=== PATIENT | female | born 1970 | race Caucasian/White ===

== ENCOUNTER 2018-09-02 10:17 | Emergency (ER) | payer MEDICARE, BC ==
[2018-09-02 11:01] VITALS: RESP 18
[2018-09-02] MEDS ORDERED: KETOROLAC 30 MG/ML 1 ML VIAL IVP STA (11:11)
[2018-09-02] MEDS ORDERED: SODIUM CHLORIDE 0.9% 1,000 ML IV STA ×2 (11:11→12:44)
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
[2018-09-02] MEDS ORDERED: ONDANSETRON 4 MG/2 ML VIAL IVP STA (11:34)
[2018-09-02 11:59] LABS: Basophils # (A) 0.1 k/uL (0-0.2); Basophils % (A) 1 %; Eosinophils # (A) 0.2 k/uL (0-0.7); Eosinophils % (A) 2 %; HCT 42.4 % (34.0-46.0); HGB 13.7 gm/dL (11.4-16.0); Lymphocytes # (A) 1.5 k/uL (1.0-4.8); Lymphocytes % (A) 17 %; MCH 28.8 pg (25.0-35.0); MCHC 32.2 g/dL (31.0-37.0); MCV 89.5 fL (80.0-100.0); Mean Platelet Volume 6.9; Monocytes # (A) 0.4 k/uL (0-1.0); Monocytes % (A) 4 %; Neutrophils # (A) 6.6 k/uL (1.3-7.7); Neutrophils % (A) 76 %; Platelet Count 277 k/uL (150-450); RBC 4.73 m/uL (3.80-5.40); RDW 13.8 % (11.5-15.5); WBC 8.8 k/uL (3.8-10.6)
[2018-09-02 12:07] LABS: ALT 33 U/L (9-52); AST 30 U/L (14-36); Albumin 4.5 g/dL (3.5-5.0); Alkaline Phosphatase 89 U/L (38-126); Amorphous Sediment,Urine Rare /hpf; Amylase 92 U/L (30-110); Anion Gap 12 mmol/L; Appearance,Urine Cloudy (Clear); Bacteria,Urine Occasional /hpf; Bilirubin,Urine Negative (Negative); Blood Urea Nitrogen 16 mg/dL (7-17); Blood,Urine Moderate (Negative); Calcium 9.8 mg/dL (8.4-10.2); Calcium Oxalate Crystals,Urine Occasional /hpf; Carbon Dioxide 25 mmol/L (22-30); Chloride 103 mmol/L (98-107); Color,Urine Yellow; Glucose 138 mg/dL (74-99); Glucose,Urine (UA) Negative (Negative); Hyaline Casts,Urine 1 /lpf (0-2); Ketones,Urine Negative (Negative); Leukocyte Esterase,Urine Moderate (Negative); Lipase 146 U/L (23-300); Mucus,Urine Rare /hpf; Nitrite,Urine Negative (Negative); Protein,Urine 2+ (Negative); RBC,Urine >182 /hpf (0-5); Sodium 140 mmol/L (137-145); Specific Gravity,Urine 1.015 (1.001-1.035); Squamous Epithelial Cell,Urine 5 /hpf (0-4); Total Bilirubin 0.5 mg/dL (0.2-1.3); Total Protein 7.5 g/dL (6.3-8.2); Urobilinogen,Urine <2.0 mg/dL (<2.0); WBC,Urine 48 /hpf (0-5)
--- NOTE | 2018-09-02 13:15 | XR ---
EXAMINATION TYPE: XR KUB DATE OF EXAM: 09/02/2018 COMPARISON: None HISTORY: Abdomen pain, left flank pain TECHNIQUE: Single view upright abdomen FINDINGS: Large calcifications overlying the right renal region estimated 3.7 x 2.9 cm in size.r smal l 1.9 and 0.8 cm calcifications may be present. Fecal debris is within the colon. Psoas margins are normal. Organomegaly is not present. No free air is evident. No suspicious differential air-fluid levels are present. IMPRESSION: 1. Large calcifications which appear to be on the right kidney side. No left renal stones are identi fied.
--- NOTE | 2018-09-02 14:03 | CT ---
EXAMINATION TYPE: CT abdomen pelvis w con DATE OF EXAM: 09/02/2018 COMPARISON: 08/15/2012 INDICATION: Back pain DLP: 1135 mGycm, Automated exposure control for dose reduction was used. CONTRAST: 100 mL of Isovue 300. Study performed without Oral Contrast TECHNIQUE: Axial images were obtained from above the diaphragm to the pubic rami in the axial plane a t 5 mm thick sections. Reconstructed images are reviewed on the computer in the coronal plane. FINDINGS: Limited CT sections are obtained the lung bases. The lung bases are clear. CT ABDOMEN: Liver: Normal Spleen: Normal Pancreas: Normal Adrenal glands: The adrenal glands are normal. Gallbladder: Gallstones are present. Kidneys: No masses are evident. There is moderate bilateral hydronephrosis. Left perinephric strandin g is evident. There is a nonobstructing renal stone at the inferior pole left kidney measuring 0.6 cm . Proximal left hydroureter is present. This extends to a 0.5 cm calcification causing obstruction. S eries 201 image 51. There is a large staghorn calculus within the right renal pelvis measuring approx imately 1.6 x 2.5 cm in size. There is some proximal right hydroureter which tapers to the pelvic inl et. No obstructing renal stone is identified. No cysts are present. Aorta: Vascular calcification is within the aorta. Inferior vena cava: Normal. CT PELVIS: Loops of bowel within the abdomen and pelvis are normal. There are loops of bowel which are incom pletely distended or lack oral contrast limiting their evaluation. Appendix: Normal as visualized. Urinary bladder: Normal. Genitourinary structures: Uterus is normal. Adnexal regions are clear. Osseous structures: No suspicious lytic or sclerotic lesions. Old pelvic fractures are evident. Right sacroiliac joint arthrodesis appears to be present. Facet degenerative changes are within the lumbar spine. Degenerative disc changes are present L5-S1. IMPRESSIONS: 1. 0.5 cm obstructing mid left ureteral stone with moderate left hydronephrosis. 2. Large staghorn calculus right renal pelvis with moderate right hydronephrosis. Some proximal right hydroureter is evident without obvious etiology.
[2018-09-02 15:37] VITALS: BP 128/75; PULSE 80; TEMP 98.2
== END 2018-09-02 15:39 | disposition home or self-care (01) ==
LOC: EC 10:17
DX: N13.6 Pyonephrosis (principal); E11.9 Type 2 diabetes mellitus without complications; I10 Essential (primary) hypertension; E78.5 Hyperlipidemia, unspecified; F41.9 Anxiety disorder, unspecified; F32.9 Major depressive disorder, single episode, unspecified; Z79.84 Long term (current) use of oral hypoglycemic drugs; Z79.899 Other long term (current) drug therapy; Z88.2 Allergy status to sulfonamides; Z88.1 Allergy status to other antibiotic agents; Z88.5 Allergy status to narcotic agent; Z87.891 Personal history of nicotine dependence
CPT/HCPCS: 36415; 80053; 82150; 83605; 83690; 85025; 81001; 81025; 87040; 74018; 74177; 99284; 96365; 96375 ×2; 96361 ×3; J2405; J0696; J1885; Q9967

== ENCOUNTER → 2018-10-10 | Outpatient (CLI) | payer MEDICARE, BC ==
[2018-10-10 14:40] LABS: Basophils # (A) 0.1 k/uL (0-0.2); Basophils % (A) 1 %; Eosinophils # (A) 0.2 k/uL (0-0.7); Eosinophils % (A) 3 %; HCT 43.9 % (34.0-46.0); HGB 13.9 gm/dL (11.4-16.0); Lymphocytes # (A) 1.6 k/uL (1.0-4.8); Lymphocytes % (A) 26 %; MCH 29.2 pg (25.0-35.0); MCHC 31.8 g/dL (31.0-37.0); MCV 91.9 fL (80.0-100.0); Mean Platelet Volume 7.2; Monocytes # (A) 0.2 k/uL (0-1.0); Monocytes % (A) 4 %; Neutrophils # (A) 3.9 k/uL (1.3-7.7); Neutrophils % (A) 65 %; Platelet Count 260 k/uL (150-450); RBC 4.78 m/uL (3.80-5.40); RDW 13.5 % (11.5-15.5)
[2018-10-10 14:51] LABS: ALT 38 U/L (9-52); AST 32 U/L (14-36); Albumin 4.6 g/dL (3.5-5.0); Alkaline Phosphatase 80 U/L (38-126); Anion Gap 8 mmol/L; Blood Urea Nitrogen 13 mg/dL (7-17); Calcium 10.1 mg/dL (8.4-10.2); Carbon Dioxide 31 mmol/L (22-30); Chloride 99 mmol/L (98-107); Glucose 117 mg/dL (74-99); Potassium 4.6 mmol/L (3.5-5.1); Sodium 138 mmol/L (137-145); Total Bilirubin 0.6 mg/dL (0.2-1.3); Total Protein 7.4 g/dL (6.3-8.2)
[2018-10-10 15:17] LABS: Amorphous Sediment,Urine Rare /hpf; Appearance,Urine Clear (Clear); Bacteria,Urine Rare /hpf; Bilirubin,Urine Negative (Negative); Blood,Urine Small (Negative); Calcium Oxalate Crystals,Urine Rare /hpf; Color,Urine Light Yellow; Glucose,Urine (UA) Negative (Negative); Hyaline Casts,Urine 3 /lpf (0-2); Ketones,Urine Negative (Negative); Leukocyte Esterase,Urine Trace (Negative); Mucus,Urine Rare /hpf; Nitrite,Urine Negative (Negative); Protein,Urine Trace (Negative); RBC,Urine 2 /hpf (0-5); Specific Gravity,Urine 1.004 (1.001-1.035); Urobilinogen,Urine <2.0 mg/dL (<2.0); WBC,Urine 4 /hpf (0-5)
== END | disposition home or self-care (01) ==
LOC: LABPAT 12:50
PROVIDERS: ATTEND Urology
DX: Z01.818 Encounter for other preprocedural examination (principal); N20.0 Calculus of kidney; Z01.812 Encounter for preprocedural laboratory examination; R31.29 Other microscopic hematuria
CPT/HCPCS: 36415; 80053; 81001; 85025; 87086; 93005

== ENCOUNTER 2018-10-17 07:34 | Inpatient (IN) | payer MEDICARE, BC ==
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
[~2018-10-17 07:34] MED LIST: DEXAMETHASONE SOD PHOSPHATE 10 MG/ML 1 ML VIAL IV ONE; LACTATED RINGERS 1,000 ML IV SCH; LIDOCAINE 1% 20 ML VIAL (10MG/ML) FOR IV START INTRADERMA PRN; ONDANSETRON 4 MG/2 ML VIAL IVP ONE; SCOPOLAMINE 1.5MG/72HR PATCH TRANSDERM ONE; ceFAZolin 1,000 MG in DEXTROSE/WATER 1 50ML.BAG IVPB ONE; fentaNYL (PF) 50 MCG/ML 2 ML AMP IV PRN
--- NOTE | 2018-10-17 07:57 | XR ---
EXAMINATION TYPE: XR KUB DATE OF EXAM: 10/17/2018 CLINICAL DATA: 48-year-old female preop for surgery, right kidney stone, [facility] COMPARISON: 09/02/2018 FINDINGS: Nonobstructive bowel gas pattern. There is moderate scattered stool. Pelvic phleboliths with suture a nchors a sutures. Suspect old healed fracture deformities at the right SI joint and bilateral pubic r ami. Partially visualized antegrade intramedullary nail within the left femur. Redemonstrated large 3.1 cm an adjacent 1.8 cm calcification in the right mid abdomen. IMPRESSION: Redemonstrated right-sided nephrolithiasis with large 3.1 and 1.8 cm calculi.
[2018-10-17 09:19] LABS: Glucose,Whole Blood 122 mg/dL (75-99)
[2018-10-17] MEDS ORDERED: MIDAZOLAM 2 MG/2 ML VIAL ONE (09:37)
[2018-10-17] MEDS ORDERED: ROCURONIUM BROMIDE 10 MG/ML 10 ML VIAL IV ONE (09:37)
[2018-10-17] MEDS ORDERED: fentaNYL (PF) 50 MCG/ML 2 ML AMP ONE (09:37)
[2018-10-17] MEDS ORDERED: GLYCOPYRROLATE 0.2 MG/ML 2 ML VIAL ONE (09:37)
[2018-10-17] MEDS ORDERED: LIDOCAINE 1% INJ 10MG/ML (20 ML MDV) ONE (09:37)
[2018-10-17] MEDS ORDERED: PROPOFOL 10 MG/ML 20 ML VIAL IV ONE (09:37)
[2018-10-17] MEDS ORDERED: NEOSTIGMINE 1 MG/ML 10 ML VIAL ONE (09:37)
[2018-10-17] MEDS ORDERED: IOPAMIDOL-370 50ML BTL MISCELLANE ONE (10:15)
[2018-10-17] MEDS ORDERED: LACTATED RINGERS 1,000 ML IV ONE (10:35)
[2018-10-17] MEDS ORDERED: ALPRAZolam 0.25 MG TAB PO PRN (11:27)
[2018-10-17] MEDS ORDERED: HYDROcodone/APAP 7.5-325MG 1 EACH TAB PO PRN (11:27)
[2018-10-17] MEDS ORDERED: ONDANSETRON 4 MG/2 ML VIAL IVP PRN (11:28)
[2018-10-17] MEDS ORDERED: ACETAMINOPHEN TAB 325 MG TAB PO PRN (11:28)
[2018-10-17] MEDS ORDERED: MAG HYDROX/AL HYDROX/SIMETH 30 ML CUP PO PRN (11:28)
[2018-10-17] MEDS ORDERED: HYDROMORPHONE (PF) 10 MG in SODIUM CHLORIDE 0.9% 49 ML IV PRN (11:30)
[2018-10-17] MEDS ORDERED: NALOXONE 0.4 MG/ML 1 ML VIAL IV PRN (11:30)
--- NOTE | 2018-10-17 11:37 | P.OP ---
Date of Procedure: 10/17/18 Preoperative Diagnosis: Right renal calculus, partial staghorn, large Postoperative Diagnosis: Same Procedure(s) Performed: Cystoscopy placement of 5-[place]izen [place] occluding balloon catheter right, percutaneous nephrostomy (Dr. espino), percutaneous nephrostolithotomy with ultrasound, large, placement of 10-[place] J nephrostomy tube. Anesthesia: GRUPO Surgeon: Edmond Peguero Estimated Blood Loss (ml): 100 Pathology: other (Stone) Condition: stable Disposition: PACU Indications for Procedure: The patient is 48. She has an obstructing partial staghorn calculus on the left causing pain it is large greater than 3 cm. She comes for percutaneous nephrostolithotomy Description of Procedure: The patient is brought to the operating suite. She is given a successful general endotracheal anesthesia on the transport gurney. She's placed in a frog position with a sterile prep and in drape. Cystoscopy with Foroblique lens and 22-[place]izen [place] sheath identifies a normal urethra. The right ureteral orifice is identified and easily intubated with a 5-[place] occluding balloon catheter which is passed up to the renal pelvis. It is secured to a 16-[place]izen [place] Summers. The patient is placed in a prone position with care to airways and extremities. Dr. Espino of radiology performed percutaneous access to the right upper pole calyx. I then dilate the tract to 30-[place]. I introduced the 30-[place] sheath into the collecting system. With the rigid offset nephroscope I intubate the collecting system. I remove clot and identify the large renal pelvic stone. With ultrasound I fracture the stone and suction or grasp the larger fragments out. I then advanced into the anterior and posterior lower pole calyces and remove the stones in them. I moved down and the UPJ and remove any stone fragments. I then pass the flexible cystoscope throughout the collecting system and see no remaining stone. I removed the nephroscope. I then pass over the working wire a 10-[place] J nephrostomy tube the coils in the renal pelvis. The working sheath is removed the. The nephrostomy tube was secured to the skin. The patient is awakened and returned recovery in good condition. Blood loss is approximately 100 mL. She'll be kept in the hospital overnight.
[2018-10-17] MEDS: KETOROLAC 30 MG/ML 1 ML VIAL IVP PRN ×2 (11:42→20:30)
[2018-10-17] MEDS: HYDROmorphone 1 MG/ML 1 ML SYRINGE IVP ONE ×2 (11:43→11:50)
--- NOTE | 2018-10-17 11:58 | FL ---
EXAMINATION TYPE: FL Perc Nephrostomy New Access DATE OF EXAM: 10/17/2018 COMPARISON: NONE HISTORY: Right renal calculus Procedure had been discussed with the patient by Dr. Peguero, risks, benefits, alternatives, were dis cussed and any questions were answered. Informed consent was obtained. The patient was in a semipro ne position prepped and draped on the OR table in the usual sterile fashion. Utilizing a 15 cm lengt h [place] needle a single pass was made into a lower pole posterior calyx under fluoroscopic guidance. An 0.018 guidewire is passed through the needle and there was placement of a 6-[place] catheter sheat h system. There was conversion to a 0.035 system was performed with passage of a guidewire into the ureter utilizing a directional catheter. A second safety wire was placed. Remaining portion of pro cedure performed by . Approximately 11 minutes and 4 seconds of fluoroscopy was provided. IMPRESSION: 1. Successful intraoperative right nephrostomy prior to nephrolithotomy.
[2018-10-17] MEDS ORDERED: GABAPENTIN 1200 MG PO SCH (13:00)
[2018-10-17 13:13] VITALS: BMI 34.4
[2018-10-17] MEDS: GABAPENTIN 400 MG CAP PO SCH ×3 (14:28→20:29)
[2018-10-17] MEDS: SODIUM CHLORIDE 0.45% 1,000 ML IV SCH ×2 (14:29→16:55)
[2018-10-17 16:24] LABS: Glucose,Whole Blood 137 mg/dL (75-99)
[2018-10-17] MEDS: INSULIN ASPART (NovoLOG) 100 UNIT/ML VIAL SQ SCH ×2 (16:52→20:29)
[2018-10-17] MEDS: metFORMIN 500 MG TAB PO SCH (16:52)
[2018-10-17] MEDS ORDERED: CALCIUM CARBONATE 500 MG CHEWABLE PO PRN (17:15)
--- NOTE | 2018-10-17 18:08 | XR ---
EXAMINATION TYPE: XR clavicle RT DATE OF EXAM: 10/17/2018 COMPARISON: NONE HISTORY: Right clavicle pain TECHNIQUE: 2 views FINDINGS: I see no fracture nor dislocation. Shoulder joint appears intact. There are no pathologic c alcifications. IMPRESSION: Negative right clavicle exam.
[2018-10-17 19:58] LABS: Glucose,Whole Blood 160 mg/dL (75-99)
[2018-10-17] MEDS ORDERED: LISINOPRIL 5 MG TAB PO SCH (21:00)
[2018-10-17] MEDS ORDERED: ATORVASTATIN 10 MG TAB PO SCH (21:00)
[2018-10-18] MEDS: KETOROLAC 30 MG/ML 1 ML VIAL IVP PRN (02:37)
[2018-10-18] MEDS: SODIUM CHLORIDE 0.45% 1,000 ML IV SCH ×2 (05:13→05:56)
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
[2018-10-18 06:58] LABS: Glucose,Whole Blood 99 mg/dL (75-99)
[2018-10-18] MEDS ORDERED: GABAPENTIN 300 MG CAP PO SCH (09:00)
[2018-10-18 09:19] VITALS: BP 108/56; PULSE 83; RESP 14; TEMP 98.8
[2018-10-18] MEDS: metFORMIN 500 MG TAB PO SCH (09:49)
[2018-10-18] MEDS: INSULIN ASPART (NovoLOG) 100 UNIT/ML VIAL SQ SCH ×2 (09:54→12:01)
[2018-10-18 11:55] LABS: Glucose,Whole Blood 101 mg/dL (75-99)
[2018-10-18] MEDS: GABAPENTIN 400 MG CAP PO SCH (12:20)
[2018-10-18 18:58] LABS: Hemoglobin A1C 7.2 % (4.0-6.0)
== END 2018-10-18 13:00 | disposition home or self-care (01) | DRG 661 ==
LOC: 2ORMAIN 07:34 → 4SSUR 12:34
PROVIDERS: ADMIT Urology; ATTEND Urology
PROC: 0T933ZZ Drainage of Right Kidney Pelvis, Percutaneous Approach (ICD-10-PCS; 2018-10-17)
PROC: 0TC33ZZ Extirpation of Matter from Right Kidney Pelvis, Percutaneous Approach (ICD-10-PCS; principal; 2018-10-17 09:15)
DX: N20.0 Calculus of kidney (principal); E11.9 Type 2 diabetes mellitus without complications; E78.5 Hyperlipidemia, unspecified; I10 Essential (primary) hypertension; R32 Unspecified urinary incontinence; K59.09 Other constipation; I83.90 Asymptomatic varicose veins of unspecified lower extremity; M79.604 Pain in right leg; F41.9 Anxiety disorder, unspecified; F32.9 Major depressive disorder, single episode, unspecified; M19.90 Unspecified osteoarthritis, unspecified site; G43.909 Migraine, unspecified, not intractable, without status migrainosus; Z79.899 Other long term (current) drug therapy; Z79.84 Long term (current) use of oral hypoglycemic drugs; Z79.891 Long term (current) use of opiate analgesic; Z87.81 Personal history of (healed) traumatic fracture; Z87.442 Personal history of urinary calculi; Z87.891 Personal history of nicotine dependence; Z88.5 Allergy status to narcotic agent; Z88.2 Allergy status to sulfonamides; Z80.1 Family history of malignant neoplasm of trachea, bronchus and lung
CPT/HCPCS: 50432; 74018; 81025; 82365; 83036; 86850; 86900; 86901; 94760; 94762

== ENCOUNTER 2018-10-28 16:22 | Emergency (ER) | payer MEDICARE, BC ==
[2018-10-28 16:32] VITALS: RESP 20
[2018-10-28] MEDS ORDERED: SODIUM CHLORIDE 0.9% 500 ML 500 ML IV STA (17:00)
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
[2018-10-28 18:03] LABS: Basophils # (A) 0.1 k/uL (0-0.2); Basophils % (A) 1 %; Eosinophils # (A) 0.3 k/uL (0-0.7); Eosinophils % (A) 4 %; HCT 38.4 % (34.0-46.0); HGB 12.9 gm/dL (11.4-16.0); Lymphocytes # (A) 1.7 k/uL (1.0-4.8); Lymphocytes % (A) 23 %; MCH 28.3 pg (25.0-35.0); MCHC 33.6 g/dL (31.0-37.0); Mean Platelet Volume 9.5; Monocytes # (A) 0.3 k/uL (0-1.0); Monocytes % (A) 4 %; Neutrophils # (A) 5.2 k/uL (1.3-7.7); Neutrophils % (A) 68 %; Platelet Count 351 k/uL (150-450); RBC 4.55 m/uL (3.80-5.40); RDW 15.8 % (11.5-15.5); WBC 7.6 k/uL (3.8-10.6)
[2018-10-28 18:04] LABS: MCV 84.3 fL (80.0-100.0)
[2018-10-28 18:09] LABS: INR 0.9 (<1.2); Partial Thromboplastin Time 24.3 sec (22.0-30.0); Prothrombin Time 9.6 sec (9.0-12.0)
[2018-10-28 18:19] LABS: ALT 31 U/L (9-52); AST 25 U/L (14-36); Alkaline Phosphatase 103 U/L (38-126); Anion Gap 11 mmol/L; Blood Urea Nitrogen 18 mg/dL (7-17); Calcium 10.2 mg/dL (8.4-10.2); Carbon Dioxide 27 mmol/L (22-30); Chloride 102 mmol/L (98-107); Glucose 109 mg/dL (74-99); Magnesium 1.7 mg/dL (1.6-2.3); Potassium 4.7 mmol/L (3.5-5.1); Sodium 140 mmol/L (137-145); Total Bilirubin 0.4 mg/dL (0.2-1.3); Total Protein 6.9 g/dL (6.3-8.2)
--- NOTE | 2018-10-28 18:58 | XR ---
EXAMINATION TYPE: XR chest 2V DATE OF EXAM: 10/28/2018 COMPARISON: Prior chest x-ray 10/21/[address] same date HISTORY: Difficulty breathing, right-sided chest pain TECHNIQUE: Frontal and lateral views of the chest are obtained. FINDINGS: Right hemidiaphragm remains elevated. Minimal tenting of the right hemidiaphragm shows a s imilar appearance. No pneumothorax or pleural effusion. Heart size is stable. Linear density at the l eft lung base may reflect atelectasis or scar. Heart size is normal. IMPRESSION: There may be minimal linear atelectasis or scarring.
--- NOTE | 2018-10-28 19:13 | CT ---
EXAMINATION TYPE: CT angio chest DATE OF EXAM: 10/28/2018 COMPARISON: Chest x-ray same date, prior chest CT 10/21/[address] abdomen pelvis 09/02/2017 HISTORY: Right sided chest pain. History of recent right sided nephrostomy tube. CT DLP: 992 mGycm Automated exposure control for dose reduction was used. CONTRAST: CTA scan of the thorax is performed without and with IV Contrast, patient injected with 100ml mL of I sovue 370, pulmonary embolism protocol. MIP images are created and reviewed. 3D reconstructed image s are created on an independent workstation and reviewed. FINDINGS: LUNGS: The lungs are grossly clear, there is no concerning parenchymal mass or nodule identified. Li near foci scattered within the lungs likely reflect scarring as on prior. There is no pleural effusio n or pneumothorax seen. The tracheobronchial tree is patent. AORTA: No additional significant abnormality is seen. MEDIASTINUM: There is satisfactory enhancement of the pulmonary artery and its branches, there is no CT evidence for pulmonary embolism. There are no greater than 1 cm hilar or mediastinal lymph nodes. No pericardial effusion is seen. There are coronary artery calcifications. OTHER: There is right-sided hydronephrosis present, hydroureter as well as periureteral soft tissue stranding similar to prior CT abdomen pelvis. Bilateral nonobstructive calculi are present within the kidneys. Cystic focus present towards the upper pole the right kidney. There are dependent stones wi thin the gallbladder. IMPRESSION: NO EVIDENT PULMONARY EMBOLISM. CHOLELITHIASIS. CORRELATE FOR POSSIBLE URINARY TRACT INFECTION, FINDIN GS COULD BE DUE TO PRIOR INSTRUMENTATION. BILATERAL NEPHROLITHIASIS.
[2018-10-28 20:10] VITALS: BP 147/81; PULSE 86; TEMP 98.2
== END 2018-10-28 20:12 | disposition home or self-care (01) ==
LOC: EC 16:22
DX: N13.30 Unspecified hydronephrosis (principal); R07.89 Other chest pain; K80.20 Calculus of gallbladder without cholecystitis without obstruction; E11.9 Type 2 diabetes mellitus without complications; E78.5 Hyperlipidemia, unspecified; I10 Essential (primary) hypertension; M19.90 Unspecified osteoarthritis, unspecified site; F32.9 Major depressive disorder, single episode, unspecified; F41.9 Anxiety disorder, unspecified; Z87.891 Personal history of nicotine dependence; Z79.84 Long term (current) use of oral hypoglycemic drugs; Z79.891 Long term (current) use of opiate analgesic; Z79.1 Long term (current) use of non-steroidal anti-inflammatories (NSAID); Z79.899 Other long term (current) drug therapy; Z88.1 Allergy status to other antibiotic agents; Z88.2 Allergy status to sulfonamides; Z88.5 Allergy status to narcotic agent; Z98.890 Other specified postprocedural states; Z93.6 Other artificial openings of urinary tract status
CPT/HCPCS: 36415; 93005; 80053; 83605; 83735; 84484; 85025; 85610; 85730; 87040; 71046; 71275; 99285; 96360; 96361; Q9967

== ENCOUNTER → 2019-04-30 | Outpatient (CLI) | payer MEDICARE, BC ==
--- NOTE | 2019-04-30 09:04 | US ---
EXAMINATION TYPE: US abdomen limited DATE OF EXAM: 04/30/2019 COMPARISON: NONE CLINICAL HISTORY: K80.20 Calculus of gallbladder without...... RUQ pain x 2 weeks, history of gallsto lance, history of right kidney surgery to remove stones in Aug 2018 EXAM MEASUREMENTS: Liver Length: 14.0 cm Gallbladder Wall: 0.2 cm CBD: 0.6 cm Right Kidney: 10.8 x 6.2 x 5.8 cm Pancreas: obscured by overlying midline bowel gas Liver: There is increased echogenicity of the hepatic parenchyma with diminished visualization of th e portal triads most commonly relating to hepatic steatosis and limiting evaluation for underlying he patic masses. Gallbladder: multiple echogenic foci, non mobile when patient rolled LLD, wall measures wnl Evidence for sonographic Iqbal's sign: no CBD: Within normal limits although upper limits of normal measuring 0.6cm Right Kidney: no hydronephrosis or nephrolithiasis seen IMPRESSION: 1. Multiple gallstones within the gallbladder neck. These are nonmobile and may be impacted into the gallbladder neck, however no other sonographic findings are seen to suggest acute cholecystitis at th is time. 2. Sonographic findings most commonly related to hepatic steatosis. Correlate with liver function joy ts. 3. Obscuration of the pancreas by overlying bowel gas.
== END | disposition home or self-care (01) ==
LOC: RADUSWWP 06:57
PROVIDERS: ATTEND Internal Medicine Gastroenterology
DX: K80.20 Calculus of gallbladder without cholecystitis without obstruction (principal)
CPT/HCPCS: 76705

== ENCOUNTER 2019-05-03 06:44 | Day surgery (SDC) | payer MEDICARE, BC ==
[~2019-05-03 06:44] MED LIST changes: -DEXAMETHASONE SOD PHOSPHATE 10 MG/ML 1 ML VIAL IV ONE; -ONDANSETRON 4 MG/2 ML VIAL IVP ONE; -SCOPOLAMINE 1.5MG/72HR PATCH TRANSDERM ONE; -ceFAZolin 1,000 MG in DEXTROSE/WATER 1 50ML.BAG IVPB ONE; -fentaNYL (PF) 50 MCG/ML 2 ML AMP IV PRN
[2019-05-03 07:19] VITALS: TEMP 97.6
[2019-05-03] MEDS ORDERED: LACTATED RINGERS 1,000 ML IV ONE ×2 (07:21)
[2019-05-03 07:25] LABS: Glucose,Whole Blood 156 mg/dL (75-99)
[2019-05-03] MEDS ORDERED: PROPOFOL 10 MG/ML 20 ML VIAL IV ONE (07:27)
--- NOTE | 2019-05-03 07:49 | P.PCN ---
Date of Procedure: 05/03/19 Procedure(s) Performed: BRIEF HISTORY: Patient is a 49-year-old pleasant female scheduled for an elective colonoscopy as a part of screening for colorectal neoplasia. PROCEDURE PERFORMED: Colonoscopy with snare polypectomy. PREOPERATIVE DIAGNOSIS: Screening for colon cancer. IV sedation per Anesthesia. PROCEDURE: After informed consent was obtained, the patient, was brought into the endoscopy unit. IV sedation was administered by Anesthesia under continuous monitoring. Digital rectal examination was normal. Initially the Olympus CF-160 flexible video colonoscope was then inserted in the rectum, gradually advanced into the cecum without any difficulty. Careful examination was performed as the scope was gradually being withdrawn. Ileocecal valve and the appendiceal orifice were visualized and appeared normal. Prep was excellent. Mucosa of the cecum, ascending colon, appeared normal. The transverse colon there was a 7-8 mm polyp that was removed by snare polypectomy. Rest of the transverse colon, descending colon, sigmoid colon, and rectum appeared normal. Retroflexion was performed in the rectum and no lesions were seen. The patient tolerated the procedure well. IMPRESSION: 7-8 mm proximal transverse colon polyp status post polypectomy RECOMMENDATIONS: Findings of this examination were discussed with the patient as well his family. She was advised to follow with the biopsy results. If the biopsy shows adenoma, she can have a repeat colonoscopy in 5 years.
[2019-05-03 08:02] VITALS: BP 133/82; PULSE 75; RESP 16
== END 2019-05-03 08:49 | disposition home or self-care (01) ==
LOC: ORWHC2ENDO 06:44
PROVIDERS: ATTEND Internal Medicine Gastroenterology
DX: Z12.11 Encounter for screening for malignant neoplasm of colon (principal); D12.3 Benign neoplasm of transverse colon; I10 Essential (primary) hypertension; G43.909 Migraine, unspecified, not intractable, without status migrainosus; E11.9 Type 2 diabetes mellitus without complications; F39 Unspecified mood [affective] disorder; Z79.84 Long term (current) use of oral hypoglycemic drugs; Z79.891 Long term (current) use of opiate analgesic; Z79.899 Other long term (current) drug therapy; Z88.2 Allergy status to sulfonamides; Z88.5 Allergy status to narcotic agent
CPT/HCPCS: 81025; 88305; 45385; J2704

== ENCOUNTER 2019-06-17 13:04 | Emergency (ER) | payer MEDICARE, BC ==
[2019-06-17 13:29] VITALS: BP 143/81; PULSE 93; RESP 20; TEMP 98.1
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
--- NOTE | 2019-06-17 15:07 | XR ---
EXAMINATION TYPE: XR foot complete RT DATE OF EXAM: 06/17/2019 COMPARISON: None HISTORY: Trauma first toe TECHNIQUE: Three-view right foot FINDINGS: There is an oblique fracture extending from the proximal portion proximal phalanx first dig it to the intra-articular surface. Minimal diastases is present. No additional fractures are evident. Plantar and Achilles tendon calcaneal heel spurs are present. IMPRESSION: 1. Fracture of the proximal portion medial aspect proximal phalanx first digit with intra-articular extension
== END 2019-06-17 15:08 | disposition home or self-care (01) ==
LOC: EC 13:04
DX: S92.401A Displaced unspecified fracture of right great toe, initial encounter for closed fracture (principal); E11.9 Type 2 diabetes mellitus without complications; E78.5 Hyperlipidemia, unspecified; I10 Essential (primary) hypertension; F41.9 Anxiety disorder, unspecified; F32.9 Major depressive disorder, single episode, unspecified; Z79.84 Long term (current) use of oral hypoglycemic drugs; Z79.899 Other long term (current) drug therapy; Z88.1 Allergy status to other antibiotic agents; Z88.2 Allergy status to sulfonamides; Z88.5 Allergy status to narcotic agent; Z87.891 Personal history of nicotine dependence; W01.0XXA Fall on same level from slipping, tripping and stumbling without subsequent striking against object, initial encounter
CPT/HCPCS: 99283

== ENCOUNTER → 2021-04-26 | Outpatient (CLI) | payer MEDICARE, BC ==
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
== END | disposition home or self-care (01) ==
LOC: RADUSWWP 12:44
PROVIDERS: ATTEND Family Medicine
DX: M79.661 Pain in right lower leg (principal); S70.11XA Contusion of right thigh, initial encounter

== ENCOUNTER → 2022-12-03 | Outpatient (CLI) | payer MEDICARE ==
--- NOTE | 2022-12-06 17:26 | MR ---
EXAMINATION TYPE: MR brain and iac wo/w con DATE OF EXAM: 12/03/2022 12:33 PM CLINICAL INDICATION:Female, 52 years old with history of H90.5 unspecified sensorineural hearing loss ; COMPARISON: None TECHNIQUE: Multi planar, multi sequence imaging was performed through the brain. Specialized thin s equences were obtained through the internal auditory canals. Pre-and post gadolinium sequences were obtained. MR contrast: IV Contrast: 10 cc Gadavist FINDINGS: The zhong-white junctions, ventricular system, and cisterns appear unremarkable. Scattered foci of hi gh T2 signal intensity are seen within the periventricular white matter. Midline structures show no a bnormality. Diffusion-weighted imaging shows no evidence of restricted diffusion. The susceptibility weighted images do not reveal any evidence for micro-hemorrhage. The bone marrow signal is within normal limits. Paranasal sinuses and mastoid air cells: Mild scattered paranasal sinus disease most pronounced in th e right maxillary sinus. Visualized orbits: Orbital contents are intact. After administration of gadolinium, no abnormal enhancement is seen. The internal auditory canal sequences demonstrate no significant irregularity. The 7th cranial nerve s, 8 cranial nerves, and cerebellar pontine angles appear unremarkable. After the administration wilfredo olinium, no abnormal enhancement is seen within the internal auditory canals. Vascular loop: Right Type II: entering, but not extending >50% of the length of the IAC IMPRESSION: 1. No evidence of intracranial mass nor acute/subacute CVA. 2. Right internal auditory canal vascular type II, no finding in the left the radiology. 3. No evidence of internal auditory canal abnormality. 4. Nonspecific white matter changes.
== END | disposition home or self-care (01) ==
LOC: RADMRIMAIN 11:28
PROVIDERS: ATTEND Otolaryngology
DX: H90.5 Unspecified sensorineural hearing loss (principal); R90.82 White matter disease, unspecified
CPT/HCPCS: 70553

== ENCOUNTER → 2023-02-04 | Outpatient (CLI) | payer MEDICARE ==
--- NOTE | 2023-02-04 11:17 | XR ---
EXAMINATION TYPE: XR elbow complete RT DATE OF EXAM: 02/04/2023 9:47 AM INDICATION: Patient age:Female; 53 years old; Reason for study: M25.521 PAIN IN RIGHT ELBOW; COMPARISON: None TECHNIQUE: The right elbow was examined in AP, lateral, and oblique projections. FINDINGS: No evidence of any acute osseous pathology, joint dislocation, or soft tissue swelling is n oted. No evidence of joint effusion is present. Minimal degeneration and osteophyte formation of the coracoid process and trochlea. IMPRESSION: 1. No evidence of acute fracture. 2. Minimal osteoarthritic changes.
== END | disposition home or self-care (01) ==
LOC: RADXRMAIN 09:21
PROVIDERS: ATTEND Family Medicine
DX: M19.021 Primary osteoarthritis, right elbow (principal)

== ENCOUNTER 2023-08-22 12:00 | Inpatient (IN) | payer MEDICARE ==
[2023-08-22] MEDS ORDERED: ACETAMINOPHEN IV (For NPO) 1,000 MG in EMPTY BAG 1 BAG IVPB STA (12:39)
[2023-08-22] MEDS ORDERED: SODIUM CHLORIDE 0.9% 1,000 ML IV STA ×3 (12:39→13:16)
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
[2023-08-22 13:10] LABS: Potassium 5.1 mmol/L (3.5-5.1)
[2023-08-22 13:11] LABS: ALT 74 U/L (4-34); AST 54 U/L (14-36); African American GFR (CKD) 32 (>60 ml/min/1.73 sqM); Albumin 4.2 g/dL (3.5-5.0); Alkaline Phosphatase 110 U/L (38-126); Anion Gap 17 mmol/L; Blood Urea Nitrogen 34 mg/dL (7-17); Calcium 9.2 mg/dL (8.4-10.2); Carbon Dioxide 21 mmol/L (22-30); Chloride 97 mmol/L (98-107); Glucose 278 mg/dL (74-99); Non-African American GFR(CKD) 28 (>60 ml/min/1.73 sqM); Sodium 135 mmol/L (137-145); Total Bilirubin 1.1 mg/dL (0.2-1.3)
[2023-08-22 13:12] LABS: INR 1.2 (<1.2); Partial Thromboplastin Time 26.5 sec (22.0-30.0); Prothrombin Time 12.4 sec (10.0-12.5)
--- NOTE | 2023-08-22 13:14 | XR ---
EXAMINATION TYPE: XR chest 2V DATE OF EXAM: 08/22/2023 COMPARISON: 10/28/2018 HISTORY: Shortness of breath TECHNIQUE: Frontal and lateral views of the chest are obtained. FINDINGS: Scattered senescent parenchymal changes noted. Hyperinflation compatible with COPD. No evidence for infiltrate. No evidence for atelectasis. Heart size is stable. Mediastinal structures are stable and grossly unremarkable. No evidence for hilar prominence. Degenerative changes dorsal spine. IMPRESSION: 1. No evidence for acute pulmonary disease.
[2023-08-22 13:48] LABS: Basophils # (A) 0.1 k/uL (0-0.2); Basophils % (A) 0 %; Eosinophils % (A) 0 %; HCT 46.9 % (34.0-46.0); HGB 15.6 gm/dL (11.4-16.0); Lymphocytes # (A) 0.8 k/uL (1.0-4.8); Lymphocytes % (A) 4 %; MCH 29.3 pg (25.0-35.0); MCHC 33.4 g/dL (31.0-37.0); MCV 87.9 fL (80.0-100.0); Mean Platelet Volume 9.4; Monocytes # (A) 0.8 k/uL (0-1.0); Monocytes % (A) 4 %; Neutrophils # (A) 18.2 k/uL (1.3-7.7); Neutrophils % (A) 91 %; Platelet Count 217 k/uL (150-450); RBC 5.33 m/uL (3.80-5.40); RDW 14.1 % (11.5-15.5); WBC 19.9 k/uL (3.8-10.6)
--- NOTE | 2023-08-22 14:14 | CT ---
EXAMINATION TYPE: CT lumbar spine wo con DATE OF EXAM: 08/22/2023 COMPARISON: 08/22/2023 CT abdomen pelvis HISTORY: Pain, right leg weakness x [address] DLP: 943 combined mGycm CONTRAST: None TECHNIQUE: CT of the lumbar spine is performed on a spiral scan at 3 mm thick sections. Reconstructed images are performed in the coronal and sagittal planes. FINDINGS: Vertebral body alignment is normal. There is loss of disc height L5-S1. Remaining disc heights are preserved. Vertebral body heights are preserved. Alignment is normal. No focal disc herniation or significant disc bulge is evident. No spi nal canal stenosis or neural foraminal stenosis is evident. Facet hypertrophy is present L5-S1. Please see CT abdomen and pelvis for discussion regarding obstructing left ureteral stone. IMPRESSION: 1. No acute lumbar spine abnormality. There is loss of disc height at L5-S1. 2. Obstructing proximal left ureteral stone
--- NOTE | 2023-08-22 14:21 | CT ---
EXAMINATION TYPE: CT abdomen pelvis wo con DATE OF EXAM: 08/22/2023 COMPARISON: None INDICATION: Pain, right leg weakness x 2 days. DLP: 943 combined mGycm, Automated exposure control for dose reduction was used. CONTRAST: 0 mL of Isovue 300. Study performed without Oral Contrast TECHNIQUE: Axial images were obtained from above the diaphragm to the pubic rami in the axial plane a t 5 mm thick sections. Reconstructed images are reviewed on the computer in the coronal plane. FINDINGS: Limited CT sections are obtained the lung bases. The lung bases are clear. Coronary artery calcific ation is present. CT ABDOMEN: There appears to be some ascites adjacent to the spleen and left lobe liver. Liver: Normal Spleen: Normal Pancreas: Normal Adrenal glands: The adrenal glands are normal. Gallbladder: Cholelithiasis is present. Kidneys: Left perinephric stranding is present. There is marked left hydronephrosis. There is an obst ructing 0.8 cm proximal left ureteral stone. There is a 0.8 cm nonobstructing calcification at the in ferior pole left kidney. An additional punctate calcification without obstruction is at the posterior lateral left mid kidney. No cysts are present. Aorta: Vascular calcification is within the aorta. Inferior vena cava: Normal. CT PELVIS: Loops of bowel within the abdomen and pelvis are normal. Fecal bolus at the level of the rectum. T he study is without oral contrast limiting bowel evaluation. Appendix: Normal as visualized. Urinary bladder: Decompressed with very limited evaluation. Genitourinary structures: Uterus appears normal. Adnexa are normal. Osseous structures: Old pelvic fractures are evident. Left hip prosthesis is present. Facet hypertrop hy is present. IMPRESSION: 1. Obstructing 0.8 cm proximal left ureteral stone with marked left hydronephrosis. 2. Nonobstructing left renal stones also present. 3. Perinephric stranding. A 4 Some ascites appears to be adjacent to the spleen and left lobe liver.
--- NOTE | 2023-08-22 14:24 | CT ---
EXAMINATION TYPE: CT hip RT wo con DATE OF EXAM: 08/22/2023 COMPARISON: CT abdomen and pelvis and a HISTORY: Pain, right leg weakness x [address] DLP: 943 combined mGycm Automated exposure control for dose reduction was used. Contrast: None Technique: Axial images 2 mm thick sections. Reconstructed images in coronal and sagittal plane. FINDINGS: Femoral head articulates with the acetabulum. Joint space is somewhat narrowed. No acute right hip fr acture is evident. There are old fractures of the lateral fascial ramus and of the pubic ramus IMPRESSION: 1. NO ACUTE OSSEOUS ABNORMALITY RIGHT HIP. 2. OLD PELVIC FRACTURES.
[2023-08-22 16:36] LABS: Appearance,Urine Turbid (Clear); Bacteria,Urine Occasional /hpf; Bilirubin,Urine 1+ (Negative); Blood,Urine Moderate (Negative); Color,Urine Brown; Glucose,Urine (UA) Negative (Negative); Ketones,Urine Negative (Negative); Leukocyte Esterase,Urine Large (Negative); Nitrite,Urine Positive (Negative); PH, Urine 5.5 (5.0-8.0); Protein,Urine 2+ (Negative); RBC,Urine 75 /hpf (0-5); Specific Gravity,Urine 1.024 (1.001-1.035); Squamous Epithelial Cell,Urine 4 /hpf (0-4); Urobilinogen,Urine <2.0 mg/dL (<2.0); WBC,Urine >182 /hpf (0-5)
[2023-08-22] MEDS: SODIUM CHLORIDE 0.9% 1,000 ML IV SCH (16:52)
[2023-08-22] MEDS ORDERED: NALOXONE 0.4 MG/ML 1 ML VIAL IV PRN (17:06)
[2023-08-22] MEDS ORDERED: HYDROmorphone 0.5 MG/0.5 ML SYRINGE IVP PRN (17:06)
[2023-08-22] MEDS ORDERED: HYDROmorphone 1 MG/ML 1 ML SYRINGE IVP PRN (17:06)
[2023-08-22 17:42] LABS: Glucose,Whole Blood 185 mg/dL (70-110)
[2023-08-22] MEDS ORDERED: LIDOCAINE 1% INJ 10MG/ML (20 ML MDV) ONE (17:42)
[2023-08-22] MEDS ORDERED: fentaNYL (PF) 50 MCG/ML 2 ML AMP ONE (17:42)
[2023-08-22] MEDS ORDERED: PHENYLEPHRINE 10 MG/ML VIAL ONE (17:42)
[2023-08-22] MEDS ORDERED: MIDAZOLAM 2 MG/2 ML VIAL ONE (17:42)
[2023-08-22] MEDS ORDERED: ONDANSETRON 4 MG/2 ML VIAL ONE (17:42)
[2023-08-22] MEDS ORDERED: SUCCINYLCHOLINE CHLORIDE 200 MG/10 ML VIAL IV ONE (17:42)
[2023-08-22] MEDS ORDERED: DEXAMETHASONE SOD PHOSPHATE 10 MG/ML 1 ML VIAL ONE (17:42)
[2023-08-22] MEDS ORDERED: PROPOFOL 10 MG/ML 20 ML VIAL IV ONE (17:42)
[2023-08-22] MEDS ORDERED: IV FLUID CONTINUATION 950 ML IV ONE (18:04)
--- NOTE | 2023-08-22 18:17 | P.OP ---
Date of Procedure: 08/22/23 Preoperative Diagnosis: Left ureteral obstruction, urinary tract infection with sepsis, left pyelonephrosis Postoperative Diagnosis: Same Procedure(s) Performed: Cystoscopy, placement of double-J catheter left to 6 x 24 Anesthesia: GRUPO Surgeon: Edmond Peguero Estimated Blood Loss (ml): 0 Pathology: none sent Condition: stable Disposition: PACU Indications for Procedure: The patient is 53. She has a known history of stones. She presents to the ER with fever and elevated white count and elevated lactic acid and a 1 cm mid ureteral stone on the left with obstruction. Her urine is infected. She comes for emergent stent placement Description of Procedure: Patient brought to the operating suite. Given general anesthetic. Placed lithotomy position with a sterile prep and drape. Cystoscopy identifies murky and very inflamed urine. The bladder is irrigated several times to clean the debris out of the bladder. The left ureteral orifice is identified and intubated with an 035 wire passed up into the kidney. Over the wires and passed a 6 x 24 double-J catheter that coils in the renal pelvis the bladder the bladder strain the patient is awake and returned recovery in good condition. She'll be observed in the hospital and placed on antibiotics. Later date we will do stone and stent removal.
[2023-08-22] MEDS ORDERED: DEXTROSE 50% SYRINGE 50 ML IVP PRN ×2 (18:58)
--- NOTE | 2023-08-22 18:58 | FL ---
EXAMINATION TYPE: FL guidance operating room DATE OF EXAM: 08/22/2023 Comparison: None Clinical History: 53-year-old female STENT PLACEMENT. Findings: FL TIME 16.1 SECONDS. DAP 0.26932 Gycm2. [address] ABARCA. Impression: Fluoroscopy for urology procedure as above.
[2023-08-22 19:03] LABS: Glucose,Whole Blood 155 mg/dL (70-110)
[2023-08-22] MEDS ORDERED: IV FLUID CONTINUATION 1,000 ML IV ONE (19:17)
[2023-08-22] MEDS ORDERED: METOPROLOL TARTRATE 5 MG/5 ML VIAL IVP ONE ×2 (19:22→19:34)
[2023-08-22 20:23] LABS: Glucose,Whole Blood 163 mg/dL (70-110)
[2023-08-22] MEDS: INSULIN ASPART (NovoLOG) 100 UNIT/ML VIAL SQ SCH (21:15)
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
[2023-08-22] MEDS: GABAPENTIN 400 MG CAP PO SCH (22:27)
[2023-08-23] MEDS: HEPARIN SODIUM,PORCINE 5,000 UNIT/ML 1 ML VIAL SQ SCH ×4 (00:01→23:05)
[2023-08-23] MEDS: INSULIN ASPART (NovoLOG) 100 UNIT/ML VIAL SQ SCH ×5 (00:02→20:57)
[2023-08-23 06:24] LABS: Glucose,Whole Blood 196 mg/dL (70-110)
[2023-08-23] MEDS: SODIUM CHLORIDE 0.9% 1,000 ML IV SCH ×4 (06:42→17:58)
--- NOTE | 2023-08-23 07:54 | XR ---
EXAMINATION TYPE: XR Hip RT and AP Pelvis DATE OF EXAM: 08/23/2023 CLINICAL HISTORY: pain TECHNIQUE: AP and frogleg views of the right hip are obtained. Single view pelvis also submitted. COMPARISON: None. FINDINGS: There is no acute fracture/dislocation evident. Healed fractures are noted of the superio r and inferior pubic rami bilaterally. The joint space appears within normal limits. The overlying soft tissue appears unremarkable. IMPRESSION: 1. There is no acute fracture or dislocation. ICD 10 NO FRACTURE, INITIAL EVALUATION
[2023-08-23] MEDS: PANTOPRAZOLE 40 MG/10 ML VIAL IV SCH (09:43)
[2023-08-23] MEDS: GABAPENTIN 300 MG CAP PO SCH (09:51)
[2023-08-23 10:03] LABS: Basophils % (A) 0 %; Eosinophils % (A) 0 %; HCT 39.1 % (34.0-46.0); Hypochromasia Moderate; Lymphocytes # (A) 0.3 k/uL (1.0-4.8); Lymphocytes % (A) 2 %; MCH 29.3 pg (25.0-35.0); MCHC 31.7 g/dL (31.0-37.0); MCV 92.4 fL (80.0-100.0); Mean Platelet Volume 8.4; Monocytes # (A) 0.3 k/uL (0-1.0); Monocytes % (A) 3 %; Neutrophils # (A) 10.7 k/uL (1.3-7.7); Neutrophils % (A) 94 %; Platelet Count 132 k/uL (150-450); RBC 4.23 m/uL (3.80-5.40); WBC 11.4 k/uL (3.8-10.6)
[2023-08-23 10:05] LABS: HGB 12.4 gm/dL (11.4-16.0)
[2023-08-23 10:12] LABS: ALT 34 U/L (4-34); AST 34 U/L (14-36); African American GFR (CKD) 81 (>60 ml/min/1.73 sqM); Albumin 2.9 g/dL (3.5-5.0); Albumin/Globulin Ratio 1.1; Alkaline Phosphatase 85 U/L (38-126); Anion Gap 9 mmol/L; Blood Urea Nitrogen 26 mg/dL (7-17); Carbon Dioxide 18 mmol/L (22-30); Chloride 110 mmol/L (98-107); Globulin 2.6 g/dL; Glucose 308 mg/dL (74-99); Non-African American GFR(CKD) 71 (>60 ml/min/1.73 sqM); Potassium 4.3 mmol/L (3.5-5.1); Sodium 137 mmol/L (137-145); Total Bilirubin 0.4 mg/dL (0.2-1.3); Total Protein 5.5 g/dL (6.3-8.2)
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
[2023-08-23 11:54] LABS: Glucose,Whole Blood 233 mg/dL (70-110)
[2023-08-23] MEDS: GABAPENTIN 400 MG CAP PO SCH ×2 (12:57→20:15)
[2023-08-23 17:59] LABS: Glucose,Whole Blood 147 mg/dL (70-110)
[2023-08-23 20:21] LABS: Glucose,Whole Blood 163 mg/dL (70-110)
--- NOTE | 2023-08-24 05:44 | P.PN ---
Subjective This is a pleasant 53 years old female with past medical history of multiple medical problems including diabetes mellitus, hypertension, hyperlipidemia, osteoarthritis, chronic constipation and kidney stone. Presents because of left flank pain radiating to the back of one-day duration. Like dull increasingly severity gradually and patient also felt she has UTI. She feels she has less urine output Patient also has been complaining of from right hip area pain about/10 for 2 days duration increased by movement. With pain medication. There are now down to 4/10. She denies chest pain or dyspnea or coughing. No diarrhea or vomiting. No headache dizziness weakness She denies smoking alcohol or illicit drugs She was hypotensive on admission but currently blood pressure improved with systolic 120s/80s. She is afebrile on admission, she has leukocytosis of 19.9 Liver enzymes mildly elevated. Creatinine went up 1.99 indicating acute kidney injury Troponin is negative Urine culture, blood culture requested CT of the abdomen and pelvis showing obstruction of the left ureter by 0.8 proximal left ureteral stone with fat stranding around that area with marked hydronephrosis on the left side. Hip CT no acute osseous abnormality showing old pelvic fracture Lumbar CAT scan showing no acute abnormality. Patient took him emergently to his urological procedure where double-J catheter placed and obstruction relieved. Currently she is covered with ceftriaxone and normal saline 08/23/2023 Patient is awake and alert Not in distress. No significant UTIs signs and symptoms, no flank pain. She has diarrhea today, we will send the test for C. diff is low. Over the suspicion is low. Patient's with no abdominal pain she ate little bit Her right hip pain is better today 1-2/10. She raises her 10 to go to the bathroom and walking with no difficulties. She still spiking some fever and reports history Still mildly tachycardic Leukocytosis significantly improved plan to 11.4 and creatinine back peripheral syringe 0.9 Patient has positive urine culture for gram-negative bacilli positive blood culture for gram-negative bacilli Patient was on Rocephin 2 g daily Infectious disease consult added Amaryl 4 mg and metformin 1000 mg on hold and can be resumed if her sugar is going up and patient is eating more Review of systems CONSTITUTIONAL: No fever, no malaise, no fatigue. HEENT: No recent visual problems or hearing problems. Denied any sore throat. CARDIOVASCULAR: No orthopnea, PND, no palpitations, no syncope. PULMONARY: No shortness of breath, no cough, no hemoptysis. NEUROLOGICAL: No headaches, no weakness, no numbness. HEMATOLOGICAL: Denies any bleeding or petechiae. Active Medications Generic Name Dose Route Start Last Admin Trade Name Freq PRN Reason Stop Dose Admin Acetaminophen 650 mg 08/22/23 17:06 Acetaminophen Tab 325 Mg Tab PO Q6HR PRN Mild Pain or Fever > 100.5 Dextrose/Water 25 ml 08/22/23 18:58 Dextrose 50% Syringe 50 Ml IVP PER PROTOCOL PRN Hypoglycemia Protocol Dextrose/Water 50 ml 08/22/23 18:58 Dextrose 50% Syringe 50 Ml IVP PER PROTOCOL PRN Hypoglycemia Protocol Gabapentin 1,200 mg 08/22/23 22:12 08/23/23 20:15 Gabapentin 400 Mg Cap PO 1,200 mg BID@1300,2200 RAMONE Administration Gabapentin 900 mg 08/23/23 09:00 08/23/23 09:51 Gabapentin 300 Mg Cap PO 900 mg QAM RAMONE Administration Heparin Sodium (Porcine) 5,000 unit 08/23/23 00:00 08/23/23 23:05 Heparin Sodium,Porcine 5,000 Unit/Ml 1 Ml Vial SQ 5,000 unit Q8HR RAMONE Administration Hydromorphone HCl 0.5 mg 08/22/23 17:06 08/23/23 16:19 Hydromorphone 0.5 Mg/0.5 Ml Syringe IVP 0.5 mg Q3HR PRN Administration Moderate Pain (Scale 4 to 6) Hydromorphone HCl 1 mg 08/22/23 17:06 Hydromorphone 1 Mg/Ml 1 Ml Syringe IVP Q3HR PRN Severe Pain (Scale 7 to 10) Sodium Chloride 1,000 mls @ 130 mls/hr 08/22/23 12:45 08/23/23 17:58 Saline 0.9% IV 130 mls/hr .Q7H42M RAMONE Administration Ceftriaxone Sodium 2 gm/ 50 mls @ 100 mls/hr 08/23/23 09:15 08/23/23 09:43 Sodium Chloride IVPB 100 mls/hr Q24HR RAMONE Administration Protocol Insulin Aspart 0 unit 08/23/23 21:00 08/23/23 20:57 Insulin Aspart (Novolog) 100 Unit/Ml Vial SQ 2 unit ACHS RAMONE Administration Protocol Naloxone HCl 0.2 mg 08/22/23 17:06 Naloxone 0.4 Mg/Ml 1 Ml Vial IV Q2M PRN Opioid Reversal Pantoprazole Sodium 40 mg 08/23/23 09:00 08/23/23 09:43 Pantoprazole 40 Mg/10 Ml Vial IV 40 mg DAILY RAMONE Administration Objective - Vital Signs Vital signs: Vital Signs Temp 98.1 F 08/23/23 14:02 Pulse 108 H 08/23/23 14:02 Resp 16 08/23/23 14:02 BP 141/82 08/23/23 14:02 Pulse Ox 98 08/23/23 14:02 FiO2 Intake & Output 08/22/23 08/23/23 08/23/23 18:59 06:59 18:59 Intake Total 950 300 168 Output Total 0 Balance 950 300 168 Weight 90.718 kg 90.718 kg Intake: IV 950 300 Intake, IV Titration 50 Amount cefTRIAXone 2 gm In 50 Sodium Chloride 0.9% 50 ml @ 100 mls/hr IVPB Q24HR [facility] Rx#:[id number] Oral 118 Output: Estimated Blood Loss 0 Other: Voiding Method Toilet # Voids 2 # Bowel Movements 2 - Exam GENERAL: The patient is alert and oriented x3, not in any acute distress. Well developed, well nourished. HEENT: Pupils are round and equally reacting to light. EOMI. No scleral icterus. No conjunctival pallor. Normocephalic, atraumatic. No pharyngeal erythema. No thyromegaly. CARDIOVASCULAR: S1 and S2 present. No murmurs, rubs, or gallops. PULMONARY: Chest is clear to auscultation, no wheezing , no crackles. ABDOMEN: Soft, nontender, nondistended, normoactive bowel sounds. No palpable organomegaly. MUSCULOSKELETAL: No joint swelling or deformity. EXTREMITIES: No cyanosis, clubbing, or pedal edema. NEUROLOGICAL: Gross neurological examination did not reveal any focal deficits. SKIN: No rashes. no petechiae. - Labs CBC & Chem 7: 08/23/23 09:11 08/23/23 09:11 Labs: Abnormal Lab Results - Last 24 Hours (Table) 08/22/23 08/22/23 08/22/23 Range/Units 12:37 12:40 17:41 WBC (3.8-10.6) k/uL Plt Count (150-450) k/uL Neutrophils # (1.3-7.7) k/uL Lymphocytes # (1.0-4.8) k/uL Chloride (98-107) mmol/L Carbon Dioxide (22-30) mmol/L BUN (7-17) mg/dL Glucose (74-99) mg/dL POC Glucose (mg/dL) 185 H (70-110) mg/dL Calcium (8.4-10.2) mg/dL C-Reactive Protein 38.5 H (<1.0) mg/dL Total Protein (6.3-8.2) g/dL Albumin (3.5-5.0) g/dL Urine Appearance Turbid H (Clear) Urine Protein 2+ H (Negative) Urine Blood Moderate H (Negative) Urine Nitrite Positive H (Negative) Urine Bilirubin 1+ H (Negative) Ur Leukocyte Esterase Large H (Negative) Urine RBC 75 H (0-5) /hpf Urine WBC >182 H (0-5) /hpf Urine WBC Clumps Many H (None) /hpf Urine Bacteria Occasional H (None) /hpf 08/22/23 08/22/23 08/23/23 Range/Units 19:00 20:22 06:18 WBC (3.8-10.6) k/uL Plt Count (150-450) k/uL Neutrophils # (1.3-7.7) k/uL Lymphocytes # (1.0-4.8) k/uL Chloride (98-107) mmol/L Carbon Dioxide (22-30) mmol/L BUN (7-17) mg/dL Glucose (74-99) mg/dL POC Glucose (mg/dL) 155 H 163 H 196 H (70-110) mg/dL Calcium (8.4-10.2) mg/dL C-Reactive Protein (<1.0) mg/dL Total Protein (6.3-8.2) g/dL Albumin (3.5-5.0) g/dL Urine Appearance (Clear) Urine Protein (Negative) Urine Blood (Negative) Urine Nitrite (Negative) Urine Bilirubin (Negative) Ur Leukocyte Esterase (Negative) Urine RBC (0-5) /hpf Urine WBC (0-5) /hpf Urine WBC Clumps (None) /hpf Urine Bacteria (None) /hpf 08/23/23 08/23/2308/23/24 Range/Units 09:11 09:11 11:52 WBC 11.4 H (3.8-10.6) k/uL Plt Count 132 L (150-450) k/uL Neutrophils # 10.7 H (1.3-7.7) k/uL Lymphocytes # 0.3 L (1.0-4.8) k/uL Chloride 110 H (98-107) mmol/L Carbon Dioxide 18 L (22-30) mmol/L BUN 26 H (7-17) mg/dL Glucose 308 H (74-99) mg/dL POC Glucose (mg/dL) 233 H (70-110) mg/dL Calcium 8.0 L (8.4-10.2) mg/dL C-Reactive Protein (<1.0) mg/dL Total Protein 5.5 L (6.3-8.2) g/dL Albumin 2.9 L (3.5-5.0) g/dL Urine Appearance (Clear) Urine Protein (Negative) Urine Blood (Negative) Urine Nitrite (Negative) Urine Bilirubin (Negative) Ur Leukocyte Esterase (Negative) Urine RBC (0-5) /hpf Urine WBC (0-5) /hpf Urine WBC Clumps (None) /hpf Urine Bacteria (None) /hpf Microbiology - Last 24 Hours (Table) 08/22/23 12:40 Blood Culture Gram Stain - Preliminary Blood Assessment and Plan Assessment: Left ureteral stone with obstruction and marked left hydronephrosis status post cystoscopy and double-J catheter placement on 08/22 Acute urinary tract infection and left pyelonephritis. Urine culture is growing gram-negative bacilli Gram-negative septicemia Sepsis with leukocytosis and tachypnea and tachycardia Acute kidney injury. There is full Diabetes mellitus Hypertension Hyperlipidemia Obesity with BMI of 34.3 Plan: continue with ceftriaxone continue with normal saline aggressive hydration Follow-up culture results from the blood and urine Monitor kidney function Urology consult Test for C. diff Consult infectious disease for bacteremia Labs and medication were reviewed.. Continue same treatment. Continue with symptomatic treatment. Resume home medication. Monitor labs and vitals. DVT and GI prophylaxis. Further recommendations as per clinical course of the patient DVT prophylaxis: Subcutaneous heparin GI Prophylaxis: Pepcid Prognosis is guarded
[2023-08-24 06:23] LABS: Glucose,Whole Blood 126 mg/dL (70-110)
[2023-08-24] MEDS: INSULIN ASPART (NovoLOG) 100 UNIT/ML VIAL SQ SCH ×4 (06:26→21:47)
[2023-08-24] MEDS: ACETAMINOPHEN TAB 325 MG TAB PO PRN ×2 (07:59→17:37)
[2023-08-24] MEDS: PANTOPRAZOLE 40 MG/10 ML VIAL IV SCH (07:59)
[2023-08-24] MEDS: GABAPENTIN 300 MG CAP PO SCH (08:00)
[2023-08-24] MEDS: HEPARIN SODIUM,PORCINE 5,000 UNIT/ML 1 ML VIAL SQ SCH ×3 (08:00→23:03)
[2023-08-24] MEDS: SODIUM CHLORIDE 0.9% 1,000 ML IV SCH ×3 (09:41→19:50)
[2023-08-24 12:24] LABS: Glucose,Whole Blood 190 mg/dL (70-110)
[2023-08-24] MEDS: GABAPENTIN 400 MG CAP PO SCH ×2 (13:10→20:54)
[2023-08-24 17:24] LABS: Glucose,Whole Blood 179 mg/dL (70-110)
[2023-08-24 21:07] LABS: Glucose,Whole Blood 217 mg/dL (70-110)
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
[2023-08-25] MEDS: ACETAMINOPHEN TAB 325 MG TAB PO PRN ×3 (00:12→20:23)
[2023-08-25] MEDS: SODIUM CHLORIDE 0.9% 1,000 ML IV SCH ×4 (02:44→20:24)
[2023-08-25 06:23] LABS: Glucose,Whole Blood 139 mg/dL (70-110)
[2023-08-25] MEDS: INSULIN ASPART (NovoLOG) 100 UNIT/ML VIAL SQ SCH ×4 (06:24→20:48)
--- NOTE | 2023-08-25 07:36 | P.PN ---
Subjective This is a pleasant 53 years old female with past medical history of multiple medical problems including diabetes mellitus, hypertension, hyperlipidemia, osteoarthritis, chronic constipation and kidney stone. Presents because of left flank pain radiating to the back of one-day duration. Like dull increasingly severity gradually and patient also felt she has UTI. She feels she has less urine output Patient also has been complaining of from right hip area pain about/10 for 2 days duration increased by movement. With pain medication. There are now down to 4/10. She denies chest pain or dyspnea or coughing. No diarrhea or vomiting. No headache dizziness weakness She denies smoking alcohol or illicit drugs She was hypotensive on admission but currently blood pressure improved with systolic 120s/80s. She is afebrile on admission, she has leukocytosis of 19.9 Liver enzymes mildly elevated. Creatinine went up 1.99 indicating acute kidney injury Troponin is negative Urine culture, blood culture requested CT of the abdomen and pelvis showing obstruction of the left ureter by 0.8 proximal left ureteral stone with fat stranding around that area with marked hydronephrosis on the left side. Hip CT no acute osseous abnormality showing old pelvic fracture Lumbar CAT scan showing no acute abnormality. Patient took him emergently to his urological procedure where double-J catheter placed and obstruction relieved. Currently she is covered with ceftriaxone and normal saline 08/23/2023 Patient is awake and alert Not in distress. No significant UTIs signs and symptoms, no flank pain. She has diarrhea today, we will send the test for C. diff is low. Over the suspicion is low. Patient's with no abdominal pain she ate little bit Her right hip pain is better today 1-2/10. She raises her 10 to go to the bathroom and walking with no difficulties. She still spiking some fever and reports history Still mildly tachycardic Leukocytosis significantly improved plan to 11.4 and creatinine back peripheral syringe 0.9 Patient has positive urine culture for gram-negative bacilli positive blood culture for gram-negative bacilli Patient was on Rocephin 2 g daily Infectious disease consult added Amaryl 4 mg and metformin 1000 mg on hold and can be resumed if her sugar is going up and patient is eating more 08/24/2023 Patient was feeling generally weak today Low appetite she was shivering and feels cold. She has a fever of 102. Leukocytosis improving Culture are positive for gram-negative bacilli pending final results She remains on ceftriaxone 2 g daily with close monitoring. Normal saline at 100 mL/h Hemoglobin A1c 7.1% it currently sugar control and long-term management can be determined later on when patient improves. Currently amaryl and Metformin is on hold She has some loose stool so we will check for C. diff although the suspicion for C. diff colitis is low Objective - Vital Signs Vital signs: Vital Signs Temp 98.2 F 08/24/23 13:37 Pulse 111 H 08/24/23 13:37 Resp 18 08/24/23 13:37 BP 127/75 08/24/23 13:37 Pulse Ox 96 08/24/23 13:37 FiO2 Intake & Output 08/23/23 08/24/23 08/24/23 18:59 06:59 18:59 Intake Total 286 0 Balance 286 0 Intake: Intake, IV Titration 50 Amount cefTRIAXone 2 gm In 50 Sodium Chloride 0.9% 50 ml @ 100 mls/hr IVPB Q24HR [facility] Rx#:[id number] Oral 236 0 Other: Voiding Method Toilet Toilet # Voids 1 - Exam GENERAL: The patient is alert and oriented x3, not in any acute distress. Well developed, well nourished. HEENT: Pupils are round and equally reacting to light. EOMI. No scleral icterus. No conjunctival pallor. Normocephalic, atraumatic. No pharyngeal erythema. No thyromegaly. CARDIOVASCULAR: S1 and S2 present. No murmurs, rubs, or gallops. PULMONARY: Chest is clear to auscultation, no wheezing , no crackles. ABDOMEN: Soft, nontender, nondistended, normoactive bowel sounds. No palpable organomegaly. MUSCULOSKELETAL: No joint swelling or deformity. EXTREMITIES: No cyanosis, clubbing, or pedal edema. NEUROLOGICAL: Gross neurological examination did not reveal any focal deficits. SKIN: No rashes. no petechiae. - Labs CBC & Chem 7: 08/23/23 09:11 08/23/23 09:11 Labs: Abnormal Lab Results - Last 24 Hours (Table) 08/23/23 08/23/23 08/23/23 Range/Units 10:00 17:57 20:19 POC Glucose (mg/dL) 147 H 163 H (70-110) mg/dL Hemoglobin A1c 7.1 H (<=6.0) % 08/24/23 08/24/23 Range/Units 06:21 12:21 POC Glucose (mg/dL) 126 H 190 H (70-110) mg/dL Hemoglobin A1c (<=6.0) % Microbiology - Last 24 Hours (Table) 08/22/23 12:40 Blood Culture Gram Stain - Preliminary Blood Blood Culture - Preliminary Gram Neg Bacilli 08/22/23 12:40 Blood Culture Gram Stain - Preliminary Blood Blood Culture - Preliminary Gram Neg Bacilli 08/22/23 12:40 Urine Culture - Preliminary Urine,Voided Gram Neg Bacilli Assessment and Plan Assessment: Left ureteral stone with obstruction and marked left hydronephrosis status post cystoscopy and double-J catheter placement on 08/22 Acute urinary tract infection and left pyelonephritis. Urine culture is growing gram-negative bacilli Gram-negative septicemia Sepsis with leukocytosis and tachypnea and tachycardia Acute kidney injury. There is full Diabetes mellitus Hypertension Hyperlipidemia Obesity with BMI of 34.3 Plan: continue with ceftriaxone continue with normal saline Follow-up culture results from the blood and urine Monitor kidney function Urology consult Test for C. diff Consult infectious disease for bacteremia Labs and medication were reviewed.. Continue same treatment. Continue with symptomatic treatment. Resume home medication. Monitor labs and vitals. DVT and GI prophylaxis. Further recommendations as per clinical course of the patient DVT prophylaxis: Subcutaneous heparin GI Prophylaxis: Pepcid Prognosis is guarded
[2023-08-25] MEDS: PANTOPRAZOLE 40 MG/10 ML VIAL IV SCH (08:18)
[2023-08-25] MEDS: HEPARIN SODIUM,PORCINE 5,000 UNIT/ML 1 ML VIAL SQ SCH ×2 (08:18→16:04)
[2023-08-25] MEDS: GABAPENTIN 300 MG CAP PO SCH (08:19)
--- NOTE | 2023-08-25 08:47 | P.PN ---
Subjective Progress Note Date: 08/25/23 The patient is in the hospital with a urinary tract infection with sepsis, pyonephrosis on the left side due to an obstructing ureteral stone. She had an emergent stent placement. She is growing Citrobacter in the urine as well as the blood. She is still having fevers with the temperature is slowly coming down. Her white blood cell count has come down from 19,000-11,000. Objective - Vital Signs Vital signs: Vital Signs Temp 98.0 F 08/25/23 02:03 Pulse 94 08/25/23 02:03 Resp 16 08/25/23 02:03 BP 127/73 08/25/23 02:03 Pulse Ox 96 08/25/23 02:03 FiO2 Intake & Output 08/24/23 08/25/23 08/25/23 18:59 06:59 18:59 Intake Total 1480 Balance 1480 Intake: Intake, IV Titration 1480 Amount Sodium Chloride 0.9% 1, 1430 000 ml @ 130 mls/hr IV . Q7H42M [facility] Rx#:[id number] cefTRIAXone 2 gm In 50 Sodium Chloride 0.9% 50 ml @ 100 mls/hr IVPB Q24HR [facility] Rx#:[id number] Oral 0 Other: Voiding Method Toilet Toilet # Voids 2 - Labs CBC & Chem 7: 08/23/23 09:11 08/23/23 09:11 Labs: Abnormal Lab Results - Last 24 Hours (Table) 08/24/23 08/24/23 08/24/23 Range/Units 12:21 17:16 21:06 POC Glucose (mg/dL) 190 H 179 H 217 H (70-110) mg/dL 08/25/23 Range/Units 06:21 POC Glucose (mg/dL) 139 H (70-110) mg/dL Microbiology - Last 24 Hours (Table) 08/22/23 12:40 Urine Culture - Final Urine,Voided Citrobacter farmeri 08/22/23 12:40 Blood Culture Gram Stain - Preliminary Blood Blood Culture - Preliminary Gram Neg Bacilli 08/22/23 12:40 Blood Culture Gram Stain - Preliminary Blood Blood Culture - Preliminary Gram Neg Bacilli Assessment and Plan Assessment: Impression: Urinary tract infection with sepsis, left pyelonephrosis due to obstructing ureteral calculus treated with double-J catheter left. Recommendations: From urologic standpoint nothing further needs to be done until her sepsis has cleared up. I anticipate 2-3 weeks before I would do a stone manipulations and stent removal. This has been discussed with the patient.
[2023-08-25 12:14] LABS: Glucose,Whole Blood 176 mg/dL (70-110)
[2023-08-25] MEDS: GABAPENTIN 400 MG CAP PO SCH ×2 (12:55→20:23)
--- NOTE | 2023-08-25 12:59 | P.PN ---
Subjective Progress Note Date: 08/25/23 Principal diagnosis: Reason for follow-up is complicated UTI and bacteremia Patient is a 53-year-old female with a past medical history significant for diabetes mellitus hypertension hyperlipidemia osteoarthritis and did have a history of kidney stone patient presenting to the ER for evaluation of not feeling well and apparently the patient did have a fever at home, patient was noted to be septic secondary to left-sided pyelonephritis with septic stone status post cystoscopy with double-J catheter placement blood cultures positive for E. coli. On today's evaluation that is 08/25/2023, the patient did spike a fever of 102.9 F last night and did have a low-grade fever 100.2 this morning, patient is currently breathing comfortably on room air not requiring any oxygen, the patient denies having any chest pain shortness of breath or cough, the patient denies nausea vomiting no abdominal pain no diarrhea. No new labs has been obtained today blood cultures E. coli sensitive to ceftriaxone urine is growing Citrobacter Objective - Vital Signs Vital signs: Vital Signs Temp 100.2 F H 08/25/23 08:00 Pulse 98 08/25/23 08:00 Resp 14 08/25/23 08:00 BP 155/78 08/25/23 08:00 Pulse Ox 97 08/25/23 08:47 FiO2 Intake & Output 08/24/23 08/25/23 08/25/23 18:59 06:59 18:59 Intake Total 1480 Balance 1480 Intake: Intake, IV Titration 1480 Amount Sodium Chloride 0.9% 1, 1430 000 ml @ 130 mls/hr IV . Q7H42M [facility] Rx#:[id number] cefTRIAXone 2 gm In 50 Sodium Chloride 0.9% 50 ml @ 100 mls/hr IVPB Q24HR [facility] Rx#:[id number] Oral 0 Other: Voiding Method Toilet Toilet # Voids 2 - Exam GENERAL DESCRIPTION: Middle-age female lying in bed in no distress RESPIRATORY SYSTEM: Unlabored breathing , decreased breath sounds at bases HEART: S1 S2 regular rate and rhythm , ABDOMEN: Soft , no tenderness EXTREMITIES: No edema feet - Labs CBC & Chem 7: 08/23/23 09:11 08/23/23 09:11 Labs: Abnormal Lab Results - Last 24 Hours (Table) 02/01/24 02/01/24 02/02/24 Range/Units 17:16 21:06 06:21 POC Glucose (mg/dL) 179 H 217 H 139 H (70-110) mg/dL 08/25/23 Range/Units 12:13 POC Glucose (mg/dL) 176 H (70-110) mg/dL Microbiology - Last 24 Hours (Table) 08/22/23 12:40 Blood Culture Gram Stain - Final Blood Blood Culture - Final Escherichia coli 08/22/23 12:40 Blood Culture Gram Stain - Final Blood Blood Culture - Final Escherichia coli 08/22/23 12:40 Urine Culture - Final Urine,Voided Citrobacter farmeri Assessment and Plan (1) Pyelonephritis Current Visit: Yes Status: Acute Code(s): N12 - TUBULO-INTERSTITIAL NEPHRITIS, NOT SPCF ACUTE OR CHRONIC SNOMED Code(s): 50417593 (2) Bacteremia Current Visit: Yes Status: Acute Code(s): R78.81 - BACTEREMIA SNOMED Code(s): 5546157 (3) Allergy to sulfa drugs Current Visit: Yes Status: Acute Code(s): Z88.2 - ALLERGY STATUS TO SULFONAMIDES SNOMED Code(s): 11371738 (4) Sepsis Current Visit: Yes Status: Acute Code(s): A41.9 - SEPSIS, UNSPECIFIED ORGANISM SNOMED Code(s): 62411603 Plan: 1patient with sepsis in this patient who did have fever elevated white count elevated lactic acid positive UA source likely complicated UTI in this patient who did have a left sided ureteral stone causing moderate hydronephrosis status post cystoscopy and double-J catheter placement 2-E. coli bacteremia source likely complicated UTI, however urine cultures growing Citrobacter both sensitive to Rocephin 3-patient to continue with Rocephin 2 g daily, repeat UA and follow-up on repeat blood culture Dictation was produced using [employer] dictation software. please excuse any grammatical, word or spelling errors. Time with Patient: Less than 30
[2023-08-25 14:40] LABS: Appearance,Urine Cloudy (Clear); Bacteria,Urine Rare /hpf; Bilirubin,Urine Negative (Negative); Blood,Urine Moderate (Negative); Color,Urine Yellow; Glucose,Urine (UA) Negative (Negative); Ketones,Urine Negative (Negative); Leukocyte Esterase,Urine Large (Negative); Mucus,Urine Rare /hpf; Nitrite,Urine Negative (Negative); Protein,Urine 1+ (Negative); RBC,Urine 47 /hpf (0-5); Specific Gravity,Urine 1.014 (1.001-1.035); Squamous Epithelial Cell,Urine <1 /hpf (0-4); Urobilinogen,Urine <2.0 mg/dL (<2.0); WBC,Urine 138 /hpf (0-5)
[2023-08-25 17:47] LABS: Glucose,Whole Blood 202 mg/dL (70-110)
[2023-08-25 20:32] LABS: Glucose,Whole Blood 230 mg/dL (70-110)
[2023-08-26] MEDS: HEPARIN SODIUM,PORCINE 5,000 UNIT/ML 1 ML VIAL SQ SCH ×2 (01:15→09:06)
[2023-08-26] MEDS: ACETAMINOPHEN TAB 325 MG TAB PO PRN (01:40)
[2023-08-26 06:13] LABS: Glucose,Whole Blood 169 mg/dL (70-110)
[2023-08-26] MEDS: INSULIN ASPART (NovoLOG) 100 UNIT/ML VIAL SQ SCH ×2 (06:22→12:36)
[2023-08-26] MEDS: SODIUM CHLORIDE 0.9% 1,000 ML IV SCH (06:23)
[2023-08-26] MEDS ORDERED: PANTOPRAZOLE 40 MG TABLET PO SCH (07:30)
[2023-08-26] MEDS: GABAPENTIN 300 MG CAP PO SCH (09:06)
[2023-08-26 09:45] LABS: Basophils # (A) 0.04 X 10*3/uL (0.00-0.10); Basophils % (A) 0.6 %; Eosinophils # (A) 0.07 X 10*3/uL (0.04-0.35); HCT 37.2 % (37.2-46.3); HGB 12.3 g/dL (12.0-15.0); Lymphocytes # (A) 0.99 X 10*3/uL (0.90-5.00); Lymphocytes % (A) 14.4 %; MCHC 33.1 g/dL (32.0-37.0); MCV 84.5 FL (80.0-97.0); Mean Platelet Volume 11.2 FL (9.5-12.2); Monocytes # (A) 0.55 X 10*3/uL (0.20-1.00); NRBC Per 100 WBC 0 X 10*3/uL (0.00-0.01); Neutrophils # (A) 5.19 X 10*3/uL (1.80-7.70); Neutrophils % (A) 75.6 %; Platelet Count 147 X 10*3/uL (140-440); RDW 14.2 % (11.5-14.5); WBC 6.87 X 10*3/uL (4.50-10.00)
[2023-08-26 09:55] LABS: BUN/Creat Ratio 9.12 Ratio (12.00-20.00); Blood Urea Nitrogen 7.3 mg/dL (9.0-27.0); Calcium 8.8 mg/dL (8.7-10.3); Carbon Dioxide 24.5 mmol/L (21.6-31.8); Chloride 104 mmol/L (96-109); Glucose 196 mg/dL (70-110); Potassium 3.5 mmol/L (3.5-5.5); Sodium 141 mmol/L (135-145)
[2023-08-26 12:00] LABS: Glucose,Whole Blood 161 mg/dL (70-110)
[2023-08-26] MEDS: GABAPENTIN 400 MG CAP PO SCH (12:36)
[2023-08-26 15:31] VITALS: BP 134/72; PULSE 89; RESP 14; TEMP 99.4
--- NOTE | 2023-08-26 16:42 | P.PN ---
Subjective Progress Note Date: 08/25/23 53 years old female with past medical history of multiple medical problems including diabetes mellitus, hypertension, hyperlipidemia, osteoarthritis, chronic constipation and kidney stone. Presents because of left flank pain radiating to the back of one-day duration. Like dull increasingly severity gradually and patient also felt she has UTI. She feels she has less urine output Patient also has been complaining of from right hip area pain about/10 for 2 days duration increased by movement. With pain medication. There are now down to 4/10. She denies chest pain or dyspnea or coughing. No diarrhea or vomiting. No headache dizziness weakness She denies smoking alcohol or illicit drugs She was hypotensive on admission but currently blood pressure improved with systolic 120s/80s. She is afebrile on admission, she has leukocytosis of 19.9 Liver enzymes mildly elevated. Creatinine went up 1.99 indicating acute kidney injury Troponin is negative Urine culture, blood culture requested CT of the abdomen and pelvis showing obstruction of the left ureter by 0.8 proximal left ureteral stone with fat stranding around that area with marked hydronephrosis on the left side. Hip CT no acute osseous abnormality showing old pelvic fracture Lumbar CAT scan showing no acute abnormality. Patient took him emergently to his urological procedure where double-J catheter placed and obstruction relieved. Currently she is covered with ceftriaxone and normal saline Objective - Vital Signs Vital signs: Vital Signs Temp 100.2 F H 08/25/23 08:00 Pulse 98 08/25/23 08:00 Resp 14 08/25/23 08:00 BP 155/78 08/25/23 08:00 Pulse Ox 97 08/25/23 08:47 FiO2 Intake & Output 08/24/23 08/25/23 08/25/23 18:59 06:59 18:59 Intake Total 1480 Balance 1480 Intake: Intake, IV Titration 1480 Amount Sodium Chloride 0.9% 1, 1430 000 ml @ 130 mls/hr IV . Q7H42M [facility] Rx#:[id number] cefTRIAXone 2 gm In 50 Sodium Chloride 0.9% 50 ml @ 100 mls/hr IVPB Q24HR [facility] Rx#:[id number] Oral 0 Other: Voiding Method Toilet Toilet # Voids 2 - Exam GENERAL: The patient is alert and oriented x3, not in any acute distress. Well developed, well nourished. HEENT: Pupils are round and equally reacting to light. EOMI. No scleral icterus. No conjunctival pallor. Normocephalic, atraumatic. No pharyngeal erythema. No thyromegaly. CARDIOVASCULAR: S1 and S2 present. No murmurs, rubs, or gallops. PULMONARY: Chest is clear to auscultation, no wheezing , no crackles. ABDOMEN: Soft, nontender, nondistended, normoactive bowel sounds. No palpable organomegaly. MUSCULOSKELETAL: No joint swelling or deformity. EXTREMITIES: No cyanosis, clubbing, or pedal edema. NEUROLOGICAL: Gross neurological examination did not reveal any focal deficits. SKIN: No rashes. no petechiae. - Labs CBC & Chem 7: 08/26/23 06:07 08/26/23 06:07 Labs: Abnormal Lab Results - Last 24 Hours (Table) 08/24/23 08/24/23 08/25/23 Range/Units 17:16 21:06 06:21 POC Glucose (mg/dL) 179 H 217 H 139 H (70-110) mg/dL 08/25/23 Range/Units 12:13 POC Glucose (mg/dL) 176 H (70-110) mg/dL Microbiology - Last 24 Hours (Table) 08/22/23 12:40 Blood Culture Gram Stain - Final Blood Blood Culture - Final Escherichia coli 08/22/23 12:40 Blood Culture Gram Stain - Final Blood Blood Culture - Final Escherichia coli 08/22/23 12:40 Urine Culture - Final Urine,Voided Citrobacter farmeri Assessment and Plan Assessment: Left ureteral stone with obstruction and marked left hydronephrosis status post cystoscopy and double-J catheter placement on 08/22 Acute urinary tract infection and left pyelonephritis. Urine culture is growing gram-negative bacilli Gram-negative septicemia Sepsis with leukocytosis and tachypnea and tachycardia Acute kidney injury. There is full Diabetes mellitus Hypertension Hyperlipidemia Obesity with BMI of 34.3 Plan: continue with ceftriaxone continue with normal saline Follow-up culture results from the blood and urine Monitor kidney function Urology consult Test for C. diff Consult infectious disease for bacteremia Labs and medication were reviewed.. Continue same treatment. Continue with symptomatic treatment. Resume home medication. Monitor labs and vitals. DVT and GI prophylaxis. Further recommendations as per clinical course of the patient DVT prophylaxis: Subcutaneous heparin GI Prophylaxis: Pepcid Prognosis is guarded
== END 2023-08-26 17:25 | disposition home or self-care (01) | DRG 854 ==
LOC: EC 12:00 → 6NMEDSUR 17:08
PROVIDERS: ADMIT Internal Medicine; ATTEND Internal Medicine
PROC: 0T778DZ Dilation of Left Ureter with Intraluminal Device, Via Natural or Artificial Opening Endoscopic (ICD-10-PCS; principal; 2023-08-22 17:12)
DX: A41.51 Sepsis due to Escherichia coli [E. coli] (principal); N13.6 Pyonephrosis; N17.9 Acute kidney failure, unspecified; E11.65 Type 2 diabetes mellitus with hyperglycemia; I10 Essential (primary) hypertension; E66.9 Obesity, unspecified; B96.20 Unspecified Escherichia coli [E. coli] as the cause of diseases classified elsewhere; E78.5 Hyperlipidemia, unspecified; M19.90 Unspecified osteoarthritis, unspecified site; G58.8 Other specified mononeuropathies; R32 Unspecified urinary incontinence; K59.09 Other constipation; B96.89 Other specified bacterial agents as the cause of diseases classified elsewhere; M21.371 Foot drop, right foot; Z68.34 Body mass index [BMI] 34.0-34.9, adult; Z87.442 Personal history of urinary calculi; Z88.2 Allergy status to sulfonamides; Z79.891 Long term (current) use of opiate analgesic; Z87.891 Personal history of nicotine dependence; Z79.899 Other long term (current) drug therapy; Z79.84 Long term (current) use of oral hypoglycemic drugs; Z88.1 Allergy status to other antibiotic agents; Z88.5 Allergy status to narcotic agent; Z87.81 Personal history of (healed) traumatic fracture
CPT/HCPCS: 36415; 71046; 72131; 73502; 74176; 80048; 80053; 81001; 83036; 83605; 84484; 85025; 85610; 85730; 86140; 87040; 87077; 87086; 87186; 93005; 94760; 96361; 96365; 96367; 99291

== ENCOUNTER 2023-09-06 05:44 | Day surgery (SDC) | payer MEDICARE ==
[2023-09-04 08:33] VITALS: BMI 32.5
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
[~2023-09-06 05:44] MED LIST changes: +DEXAMETHASONE SOD PHOSPHATE 4 MG/ML 1 ML VIAL IV ONE; -LIDOCAINE 1% 20 ML VIAL (10MG/ML) FOR IV START INTRADERMA PRN
[2023-09-06] MEDS: LACTATED RINGERS 1,000 ML IV ONE ×2 (06:40→08:16)
[2023-09-06 06:51] LABS: Glucose,Whole Blood 204 mg/dL (70-110)
[2023-09-06] MEDS: ONDANSETRON 4 MG/2 ML VIAL IVP ONE (06:53)
[2023-09-06] MEDS ORDERED: fentaNYL (PF) 50 MCG/ML 2 ML AMP IV PRN (07:00)
[2023-09-06] MEDS ORDERED: LIDOCAINE 1% INJ 10MG/ML (20 ML MDV) ONE (07:19)
[2023-09-06] MEDS ORDERED: fentaNYL (PF) 50 MCG/ML 2 ML AMP ONE (07:19)
[2023-09-06] MEDS ORDERED: MIDAZOLAM 2 MG/2 ML VIAL ONE (07:19)
[2023-09-06] MEDS ORDERED: PROPOFOL 10 MG/ML 20 ML VIAL IV ONE (07:19)
[2023-09-06] MEDS ORDERED: KETOROLAC 15 MG/ML 1 ML VIAL ONE (07:19)
[2023-09-06] MEDS ORDERED: PHENYLEPHRINE 10 MG/ML VIAL ONE (07:19)
[2023-09-06] MEDS: AMPICILLIN 1,000 MG in SODIUM CHLORIDE 0.9% 50 ML IVPB PRN (07:24)
[2023-09-06] MEDS: GENTAMICIN 100 MG in SODIUM CHLORIDE 0.9% 100 ML IVPB PRN (07:37)
--- NOTE | 2023-09-06 08:09 | XR ---
EXAMINATION TYPE: XR KUB DATE OF EXAM: 09/06/2023 Comparison: 10/17/2018 Clinical History: 53-year-old female N20.1 left ureteral stone Findings: Left-sided ureteral stent in place. There is a elongated 1.9 cm calcification along the proximal aspe ct of the stent probably within the upper ureter. Additional left-sided renal calculi measuring 1.2 c m and 1.1 cm. A number of pelvic phleboliths. Suture anchors at the pubic bodies. Scattered moderate stool. Nonobstructive bowel gas pattern. Impression: Left-sided ureteral stent in place. Left-sided renal calculi measuring up to 1.2 cm. Also, suspect an elongated 1.9 cm stone along the proximal aspect of the stent within the upper ureter.
[2023-09-06] MEDS: IOPAMIDOL-370 100ML BTL INJ ONE ×2 (08:14→08:20)
--- NOTE | 2023-09-06 08:40 | P.OP ---
Date of Procedure: 09/06/23 Preoperative Diagnosis: Left ureteral and renal calculi Postoperative Diagnosis: Same Procedure(s) Performed: Cystoscopy, removal double-J catheter left, left ureteroscopy with laser lithotripsy, intraoperative nephrostogram, replacement of 6 x 24 double-J cath left Anesthesia: GRUPO Surgeon: Edmond Peguero Estimated Blood Loss (ml): 10 Pathology: other Condition: stable (Stone) Disposition: PACU Indications for Procedure: Patient is 53. She was in the hospital recently with an obstructing left ureteral calculus, urinary tract infection with sepsis required an emergent stent. She now comes for formal stone and stent removal. She also has a stone in the left kidney that are removed. Description of Procedure: Patient out of the operating suite. Given general anesthesia. Placed lithotomy position with sterile prep and drape. Cystoscopy Foroblique lens and 21-Algerian sheath identifies a normal bladder. The left ureteral stent is seen and there is a lot of edema around the orifice. The stent is grasped and pulled the urethral meatus. An 035 wires passed through the stent up into the left kidney alongside the 9 mm proximal ureteral stone. Over the wire pass a 23-92-Fwljos reentry sheath into the proximal left ureter. The inner sheath and wire removed. I passed the flexible ureteroscope up to the stone. With the 275 laser probe the stone is broken into tiny fragments. Floats back up into the kidney and I followed in the kidney where a complete the lithotripsy. I basket the largest fragments. I then pass into the lower pole calyx and do another lithotripsy to a smaller stone up. I basket the larger fragments. I do an i ntraoperative nephrostogram find no remaining stones. Due to the significant edema where the stone enlarged I'll replace a stent for another week. An 035 wires passed through the ureteroscope into the kidney. The ureteroscope was removed. Over the wire is then passed a 6 x 24 double-J catheter that coils in the renal pelvis and in the bladder. The bladder is drained the patient is awakened and returned recovery room in good condition. She'll be discharged home upon recovery and found the office in one week for stent removal.
[2023-09-06 09:00] LABS: Glucose,Whole Blood 172 mg/dL (70-110)
[2023-09-06 09:07] VITALS: TEMP 96.8
[2023-09-06 10:10] VITALS: BP 115/63; PULSE 82; RESP 16
--- NOTE | 2023-09-06 20:05 | FL ---
EXAMINATION TYPE: FL urography retrograde DATE OF EXAM: 09/06/2023 FLUOROSCOPY Fluoroscopy time of 1 minute 21 seconds was used during CYSTO LITHO LEFT URETERAL STONE, FL UROGRAPHY RETROGRADE. 11 image/s document/s the procedure. DAP - 3.5458 Gycm2.
== END 2023-09-06 10:25 | disposition home or self-care (01) ==
LOC: OR 05:44
PROVIDERS: ATTEND Urology
DX: N20.2 Calculus of kidney with calculus of ureter (principal); N39.0 Urinary tract infection, site not specified; I10 Essential (primary) hypertension; E78.5 Hyperlipidemia, unspecified; E11.9 Type 2 diabetes mellitus without complications; M19.90 Unspecified osteoarthritis, unspecified site; J18.9 Pneumonia, unspecified organism; F41.9 Anxiety disorder, unspecified; G43.909 Migraine, unspecified, not intractable, without status migrainosus; Z98.890 Other specified postprocedural states; F32.A Depression, unspecified; Z87.442 Personal history of urinary calculi; Z87.891 Personal history of nicotine dependence; Z80.1 Family history of malignant neoplasm of trachea, bronchus and lung; Z79.84 Long term (current) use of oral hypoglycemic drugs; Z79.899 Other long term (current) drug therapy; Z88.2 Allergy status to sulfonamides; Z88.5 Allergy status to narcotic agent
CPT/HCPCS: 52353; 82365; 74420; 74018; C2625; C1769; C1894; J2250; J2405; J2001; J3010; J1580; J0290; J1885; J2704; Q9967; J2371

== ENCOUNTER → 2024-01-31 | Outpatient (CLI) | payer MEDICARE ==
[2024-01-31 18:28] LABS: Basophils # (A) 0.09 X 10*3/uL (0.00-0.10); Basophils % (A) 1.5 %; Eosinophils # (A) 0.18 X 10*3/uL (0.04-0.35); HCT 42.6 % (37.2-46.3); HGB 13.1 g/dL (12.0-15.0); Lymphocytes # (A) 2.01 X 10*3/uL (0.90-5.00); Lymphocytes % (A) 33.5 %; MCH 27.3 pg (27.0-32.0); MCHC 30.8 g/dL (32.0-37.0); MCV 88.8 FL (80.0-97.0); Mean Platelet Volume 10.5 FL (9.5-12.2); Monocytes # (A) 0.37 X 10*3/uL (0.20-1.00); Monocytes % (A) 6.2 %; NRBC Per 100 WBC 0 X 10*3/uL (0.00-0.01); Neutrophils # (A) 3.34 X 10*3/uL (1.80-7.70); Neutrophils % (A) 55.6 %; Platelet Count 247 X 10*3/uL (140-440)
[2024-01-31 18:58] LABS: Appearance,Urine Cloudy (Clear); Bilirubin,Urine Negative (Negative); Blood,Urine Negative (Negative); Color,Urine Yellow (Yellow); Ketones,Urine Trace (Negative); Nitrite,Urine Negative (Negative); PH, Urine 5.5; Specific Gravity,Urine 1.029 (1.001-1.030); Urobilinogen,Urine 0.2 E.U./DL
[2024-01-31 19:10] LABS: Blood Urea Nitrogen 17.1 mg/dL (9.0-27.0); Calcium 9.5 mg/dL (8.7-10.3); Carbon Dioxide 23.9 mmol/L (21.6-31.8); Chloride 104 mmol/L (96-109); Glucose 169 mg/dL (70-110); Potassium 4.8 mmol/L (3.5-5.5); Sodium 141 mmol/L (135-145)
[2024-01-31 19:21] LABS: Bacteria,Urine Trace (None Seen); Calcium Oxalate Crystals,Urine Present (None Seen)
== END | disposition home or self-care (01) ==
LOC: LABPAT 12:53
PROVIDERS: ATTEND Urology
DX: Z01.812 Encounter for preprocedural laboratory examination (principal); N39.3 Stress incontinence (female) (male)
CPT/HCPCS: 36415; 80048; 81001; 85025; 87086

== ENCOUNTER 2024-02-07 07:24 | Day surgery (SDC) | payer MEDICARE ==
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
[~2024-02-07 07:24] MED LIST changes: -DEXAMETHASONE SOD PHOSPHATE 4 MG/ML 1 ML VIAL IV ONE; -LACTATED RINGERS 1,000 ML IV SCH; +fentaNYL (PF) 50 MCG/ML 2 ML AMP IV PRN
[2024-02-07 08:06] LABS: Glucose,Whole Blood 162 mg/dL (70-110)
[2024-02-07] MEDS: ONDANSETRON 4 MG/2 ML VIAL IVP ONE (08:06)
[2024-02-07] MEDS: LACTATED RINGERS 1,000 ML IV SCH (08:06)
[2024-02-07] MEDS: IV FLUID CONTINUATION 1,000 ML IV ONE (08:07)
[2024-02-07] MEDS ORDERED: fentaNYL (PF) 50 MCG/ML 2 ML AMP ONE (08:24)
[2024-02-07] MEDS ORDERED: MIDAZOLAM 2 MG/2 ML VIAL ONE (08:24)
[2024-02-07] MEDS ORDERED: GLYCOPYRROLATE 0.2 MG/ML 2 ML VIAL ONE (08:24)
[2024-02-07] MEDS ORDERED: LIDOCAINE 1% INJ 10MG/ML (20 ML MDV) ONE (08:24)
[2024-02-07] MEDS ORDERED: PROPOFOL 10 MG/ML 20 ML VIAL IV ONE (08:24)
[2024-02-07] MEDS ORDERED: KETOROLAC 15 MG/ML 1 ML VIAL ONE (08:24)
[2024-02-07] MEDS: AMPICILLIN 1,000 MG in SODIUM CHLORIDE 0.9% 50 ML IVPB PRN (08:28)
[2024-02-07] MEDS: GENTAMICIN 100 MG in SODIUM CHLORIDE 0.9% 100 ML IVPB PRN (08:45)
[2024-02-07] MEDS: VASOPRESSIN 20 UNIT/ML 1 ML VIAL SQ ONE (08:51)
[2024-02-07] MEDS: GENTAMICIN 80 MG in SODIUM CHLORIDE 0.9% 500 ML 500 ML IRRIGATION ONE (08:53)
[2024-02-07] MEDS: BACITRACIN ZINC 500 UNIT/GM OINT 28.4 GM TUBE TOPICAL ONE (08:54)
[2024-02-07] MEDS ORDERED: ONDANSETRON 4 MG/2 ML VIAL IVP PRN (09:19)
[2024-02-07] MEDS ORDERED: ETODOLAC 400 MG TAB PO PRN (09:19)
--- NOTE | 2024-02-07 09:29 | P.OP ---
Date of Procedure: 02/07/24 Preoperative Diagnosis: stress urinary incontinence Postoperative Diagnosis: same Procedure(s) Performed: cystoscopy, placement of pubovaginal sling (Lynx) Anesthesia: GRUPO Surgeon: Edmond Peguero Estimated Blood Loss (ml): 25 Pathology: none sent Condition: stable Disposition: PACU Indications for Procedure: patient is 54. She has documented significant stress incontinence. She's been given treatment options. She comes for a pubovaginal sling (Lynx). The risks and complications including infection bleeding pain injury to the bladder injury to adjacent organs urine retention persistent incontinence fistulization among others have been explained and understood and accepted. Description of Procedure: patient brought to the operating suite. Given a general anesthetic. Placed in lithotomy position with a sterile prep and drape. The labia are sewn laterally with 2-0 silk. A Summers catheters introduced sterilely. A vaginal speculum was introduced into the vagina. The anterior vaginal mucosa was elevated off the submucosa with 10 mL of 20 g of Pitressin and 200 mL of saline. A midline suburethral incision is made and I dissect lateral the bladder neck bilaterally. 2 incisions at the corners of the pubis suprapubically are made. I passed the left introducer retropubically of the vaginal space. I passed the right introducer retropubically and the vaginal space. There is a fair amount of scarring from previous surgery. I then performed cystoscopy identified the right introducer and penetrated the bladder this was removed and replaced and this time without injury. I then attached the graft and pull the graft back suprapubically. The graft elevate the bladder neck nicely. Bladder is reinspected there is no injury noted. Summers catheters introduced a. The redundant graft is removed suprapubically. The incision is closed with Monocryl. Small cystocele was repaired with 2-0 chromic. Then closed the vaginal close with 2-0 Vicryl. A vaginal packing is placed. The urine is clear. The patient is awakened and returned recovery room good condition. Blood loss is 25 mL.
[2024-02-07] MEDS: HYDROmorphone 0.5 MG/0.5 ML SYRINGE IVP PRN (10:08)
[2024-02-07] MEDS: GLIMEPIRIDE 4 MG TAB PO SCH (14:33)
[2024-02-07] MEDS: GABAPENTIN 400 MG CAP PO SCH (14:33)
[2024-02-07] MEDS: traMADol 50 MG TAB PO SCH (14:45)
[2024-02-07 15:24] LABS: Glucose,Whole Blood 123 mg/dL (70-110)
[2024-02-07] MEDS: SODIUM CHLORIDE 0.45% 1,000 ML IV SCH (15:24)
[2024-02-07] MEDS: DEXAMETHASONE SOD PHOSPHATE 4 MG/ML 1 ML VIAL IV ONE (16:06)
[2024-02-07] MEDS: KETOROLAC 15 MG/ML 1 ML VIAL IVP PRN (17:02)
[2024-02-07 17:18] VITALS: RESP 16
[2024-02-07] MEDS: metFORMIN 500 MG TAB PO SCH (17:42)
[2024-02-07] MEDS: GABAPENTIN 300 MG CAP PO SCH (21:47)
[2024-02-07] MEDS: CIPROFLOXACIN HCL 500 MG TAB PO SCH (21:48)
[2024-02-08 03:35] VITALS: PULSE 76; TEMP 98
[2024-02-08 07:58] VITALS: BP 154/63
[2024-02-08] MEDS: GABAPENTIN 300 MG CAP PO SCH (08:16)
[2024-02-08] MEDS: NON FORMULARY DRUG (Phentermine Hcl [Phentermine Hcl] 37.5 MG Tablet) PO SCH (09:03)
--- NOTE | 2024-02-08 10:33 | P.DS ---
Providers Expected date of discharge: 02/08/24 Attending physician: Edmond Peguero Primary care physician: [facility] Course: On the day of admission, the patient underwent a Lynx pubovaginal sling. The perioperative course was unremarkable. Vaginal packing was removed on the first postoperative day. At the time of discharge, the patient was comfortable. She stated that she did not require analgesics. Her incisions were clean and dry. The Summers catheter was draining clear yellow urine. Procedures: Lynx pubovaginal sling on February 07, 2024. Patient Condition at Discharge: Good Plan - Discharge Summary Discharge Rx Participant: No New Discharge Prescriptions: No Action metFORMIN HCL [Glucophage] 1,000 mg PO AC-BID Gabapentin [Neurontin] 600 mg PO QAM Gabapentin [Neurontin] 1,200 mg PO 1400 traMADol HCL [Ultram] 50 mg PO TID Gabapentin [Neurontin] 600 mg PO 2100 Phentermine HCl 37.5 mg PO QAM Glimepiride [Amaryl] 4 mg PO HS Ketorolac [Toradol] 10 mg PO Q6HR PRN #14 tab PRN Reason: Pain Control Discharge Medication List Gabapentin [Neurontin] 1,200 mg PO 1400 08/28/17 [History] Gabapentin [Neurontin] 600 mg PO QAM 08/28/17 [History] metFORMIN HCL [Glucophage] 1,000 mg PO AC-BID 08/28/17 [History] traMADol HCL [Ultram] 50 mg PO TID 10/28/18 [History] Gabapentin [Neurontin] 600 mg PO 2100 09/04/23 [History] Glimepiride [Amaryl] 4 mg PO HS 09/04/23 [History] Phentermine HCl 37.5 mg PO QAM 09/04/23 [History] Ketorolac [Toradol] 10 mg PO Q6HR PRN #14 tab 09/06/23 [Rx] Follow up Appointment(s)/Referral(s): Edmond Peguero MD [STAFF PHYSICIAN] - 02/12/24 Activity/Diet/Wound Care/Special Instructions: Discharge home with Summers catheter. Okay to shower on February 09, 2024. No lifting or strenuous activity. Diet as tolerated. Continue antibiotics until completed. Discharge Disposition: HOME SELF-CARE
== END 2024-02-08 11:30 | disposition home or self-care (01) ==
LOC: OR 07:24 → 4FBP 09:32 → OR 02-08 11:30
PROVIDERS: ATTEND Urology
DX: N39.3 Stress incontinence (female) (male) (principal); E11.9 Type 2 diabetes mellitus without complications; E78.5 Hyperlipidemia, unspecified; I10 Essential (primary) hypertension; M19.90 Unspecified osteoarthritis, unspecified site; Z79.84 Long term (current) use of oral hypoglycemic drugs; Z87.442 Personal history of urinary calculi; Z87.891 Personal history of nicotine dependence; Z88.1 Allergy status to other antibiotic agents; Z88.2 Allergy status to sulfonamides; Z88.5 Allergy status to narcotic agent; Z98.890 Other specified postprocedural states; Z79.899 Other long term (current) drug therapy
CPT/HCPCS: 57288; C1771; J1580 ×2; J2405; J0290; J1885 ×2; J1170

== ENCOUNTER 2024-02-19 11:52 | Day surgery (SDC) | payer MEDICARE ==
[2024-02-16 14:03] VITALS: BMI 32.5
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
[2024-02-19] MEDS: ONDANSETRON 4 MG/2 ML VIAL IVP ONE (12:36)
[2024-02-19 12:37] LABS: Glucose,Whole Blood 121 mg/dL (70-110)
[2024-02-19] MEDS: DEXAMETHASONE SOD PHOSPHATE 4 MG/ML 1 ML VIAL IV ONE (12:37)
[2024-02-19] MEDS: MIDAZOLAM 2 MG/2 ML VIAL IV ONE (12:37)
[2024-02-19] MEDS: LACTATED RINGERS 1,000 ML IV SCH (12:45)
[2024-02-19] MEDS: IV FLUID CONTINUATION 1,000 ML IV ONE ×2 (12:46)
[2024-02-19] MEDS: AMPICILLIN 1,000 MG in SODIUM CHLORIDE 0.9% 50 ML IVPB PRN (13:08)
[2024-02-19] MEDS ORDERED: KETOROLAC 30 MG/ML 1 ML VIAL ONE (13:28)
[2024-02-19] MEDS ORDERED: PROPOFOL 10 MG/ML 20 ML VIAL IV ONE (13:28)
[2024-02-19] MEDS ORDERED: fentaNYL (PF) 50 MCG/ML 2 ML AMP ONE (13:28)
[2024-02-19] MEDS ORDERED: PHENYLEPHRINE-0.9% NACL SYG 1,000 MCG/10 ML SYRINGE ONE (13:28)
[2024-02-19] MEDS ORDERED: LIDOCAINE 1% INJ 10MG/ML (20 ML MDV) ONE (13:28)
[2024-02-19] MEDS: GENTAMICIN 100 MG in SODIUM CHLORIDE 0.9% 100 ML IVPB PRN (13:32)
[2024-02-19] MEDS: GENTAMICIN 80 MG in SODIUM CHLORIDE 0.9% 500 ML 500 ML IRRIGATION ONE (14:01)
[2024-02-19] MEDS: VASOPRESSIN 20 UNIT in SODIUM CHLORIDE 0.9% 200 ML IV ONE (14:02)
[2024-02-19] MEDS: IOPAMIDOL-370 100ML BTL MISCELLANE ONE (14:07)
[2024-02-19] MEDS: LACTATED RINGERS 1,000 ML IV ONE (14:34)
--- NOTE | 2024-02-19 14:35 | FL ---
EXAMINATION TYPE: FL urography retrograde DATE OF EXAM: 02/19/2024 COMPARISON: NONE HISTORY: N39.3 ESTRELLITA TECHNIQUE: Fluoroscopy. FINDINGS: check patency, 8 sec fluoro, dap 1.2341 Gyc,m2 IMPRESSION: As Above.
--- NOTE | 2024-02-19 14:57 | P.OP ---
Date of Procedure: 02/19/24 Preoperative Diagnosis: breakdown pubovaginal sling Postoperative Diagnosis: same Procedure(s) Performed: cystoscopy, bilateral retrograde pyelograms, exploration of previously placed pubovaginal sling, removed, placement of trans-obturator tape. Anesthesia: GRUPO Surgeon: Edmond Peguero Estimated Blood Loss (ml): 50 Pathology: none sent Condition: stable Disposition: PACU Indications for Procedure: patient is 54. She underwent a pubovaginal sling approximately 2 weeks ago. He worked for about a week with then she strained very hard for a bowel movement in the sling quit working and she started to leak again. She was seen in the office and noted to have stress incontinence with some mobility the urethra. There is no vaginal leakage. She comes for exploration of sling perhaps tightening of the sling or replacement of sling Description of Procedure: patient brought to the operating suite and given a general anesthetic placed lithotomy position with a sterile prep and drape. Cystoscopy Foroblique lens and 22-Slovak sheath identifies a normal urethra. The bladder wall is unremarkable the ureteral orifices are normal. Within a cone-tipped catheter bilateral retrograde pyelograms were performed because of the extreme difficulty with the pubovaginal sling. There is no evidence of injury to the urethra or bladder. And then remove the old stitch in the vaginal vault and expose the previously placed sling. I slowly freed up from the surrounding tissue is already is incorporated tissue. The left side of the graft is quite thin and tenuous a. It is hard to say whether the graft slipped or just all tea a. I free up the graft arms on both sides a. I attempted to imbricate the graft however the graft on the left side is so thin and atretic that I am unable to do so this I will remove that portion and graft and place a new graft. After excising the majority of the graft then is seen in the vagina I make 2 incisions in the inguinal crease. I passed the trans-obturator tape introducers the obturator foramen into the vaginal space bilaterally.I then perform cystoscopy to make sure there is no injury to the bladder and there is none. I attached the grafted introducers and pull back through the obturator foramen bilaterally at sits in the mid urethra nicely. Then removed the redundant sheathing. I closed the vaginal mucosa with running 2-0 Vicryl. I excised the redundant graft the incisions in the inguinal crease. A close inguinal crease with 4-[address] pack is place. The patient is awake and returned recovery in good condition. She tolerated procedure well. I'll observe in the hospital overnight.
[2024-02-19] MEDS ORDERED: SODIUM CHLORIDE 0.45% 1,000 ML IV SCH (15:00)
[2024-02-19] MEDS: traMADol 50 MG TAB PO SCH (17:32)
[2024-02-19] MEDS: LEVOFLOXACIN 500 MG TAB PO SCH (17:34)
[2024-02-19] MEDS: GABAPENTIN 400 MG CAP PO SCH (17:38)
[2024-02-19] MEDS: KETOROLAC 15 MG/ML 1 ML VIAL IVP PRN (21:26)
[2024-02-19] MEDS: GABAPENTIN 300 MG CAP PO SCH (22:30)
[2024-02-19] MEDS: metFORMIN 500 MG TAB PO SCH (22:30)
[2024-02-20 01:39] VITALS: RESP 17
--- NOTE | 2024-02-20 07:13 | P.DS ---
Providers Attending physician: Edmond Peguero Primary care physician: [facility] Course: this ptient 2 weeks ago nderwent a pubovaginal sling. After a significant strain from a constipated bm the sling loosened and she went from dry to recurrent rodolfo. Yesterday I attempted to salvage and tighten the pvs but it failed so I out in a new tot[obtyrx 2]. she did well overnight SHe will be d/c home this am. SHe will fu in theoffice in 1 week. tylenol for pain. Levaquin prophylaxis rv office 1 week Patient Condition at Discharge: Good Plan - Discharge Summary Discharge Rx Participant: Yes New Discharge Prescriptions: New Levofloxacin [Levaquin] 500 mg PO DAILY 5 Days #5 tab No Action metFORMIN HCL [Glucophage] 1,000 mg PO AC-BID Gabapentin [Neurontin] 600 mg PO BID Gabapentin [Neurontin] 1,200 mg PO 1400 traMADol HCL [Ultram] 50 mg PO TID Vitamin D (Unknown Dose) 1 tab PO Q48H Glimepiride [Amaryl] 4 mg PO 1400 Discharge Medication List Gabapentin [Neurontin] 1,200 mg PO 1400 08/28/17 [History] Gabapentin [Neurontin] 600 mg PO BID 08/28/17 [History] metFORMIN HCL [Glucophage] 1,000 mg PO AC-BID 08/28/17 [History] traMADol HCL [Ultram] 50 mg PO TID 10/28/18 [History] Glimepiride [Amaryl] 4 mg PO 1400 09/04/23 [History] Vitamin D (Unknown Dose) 1 tab PO Q48H 02/16/24 [History] Levofloxacin [Levaquin] 500 mg PO DAILY 5 Days #5 tab 02/20/24 [Rx] Follow up Appointment(s)/Referral(s): Edmond Peguero MD [STAFF PHYSICIAN] - 1 Week Discharge Disposition: HOME SELF-CARE
[2024-02-20 08:00] VITALS: BP 135/79; PULSE 80; TEMP 97.5
[2024-02-20] MEDS ORDERED: GLIMEPIRIDE 4 MG TAB PO SCH (14:00)
== END 2024-02-20 08:24 | disposition home or self-care (01) ==
LOC: OR 11:52 → 4FBP 14:47 → OR 02-20 08:24
PROVIDERS: ATTEND Urology
DX: N39.3 Stress incontinence (female) (male) (principal); E11.9 Type 2 diabetes mellitus without complications; E78.5 Hyperlipidemia, unspecified; I10 Essential (primary) hypertension; M19.90 Unspecified osteoarthritis, unspecified site; Z87.442 Personal history of urinary calculi; Z98.890 Other specified postprocedural states; Z87.891 Personal history of nicotine dependence; Z80.1 Family history of malignant neoplasm of trachea, bronchus and lung; Z79.84 Long term (current) use of oral hypoglycemic drugs; Z79.891 Long term (current) use of opiate analgesic; Z79.899 Other long term (current) drug therapy; Z88.2 Allergy status to sulfonamides; Z88.1 Allergy status to other antibiotic agents; Z88.5 Allergy status to narcotic agent
CPT/HCPCS: 74420; 57288; J2250; J1580 ×2; J1100; J2405; J0290; J1885; Q9967